=== PATIENT | female | born 1990 | race Hispanic/Latino ===

== ENCOUNTER 2022-04-24 04:53 | Emergency (ER) | payer OTHER, MEDICAID, SELFPAY ==
[2022-04-24 05:03] VITALS: BP 123/80; RESP 18; TEMP 36.8; O2SAT 99; BMI 32.5
--- NOTE | 2022-04-24 06:05 | ED.BACK ---
HPI - Back Pain/Injury General Chief Complaint: Back Pain/Injury Stated Complaint: lower back pain 18 weeks Time Seen by Provider: 04/24/22 06:04 Source: patient Related Data Previous Rx's Medication Instructions Recorded nitrofurantoin 100 mg PO BID 7 days #14 caps 04/24/22 monohydrate/macrocrystals 100 mg capsule (Macrobid) Patient History Medical History (Updated 04/24/22 @ 08:18 by Jere Becker MD) No chronic diseases present Surgical History (Updated 04/24/22 @ 08:14 by Jere Becker MD) History of Social History Smoking Status: Never smoker Smoking Status: Never smoker Substance Use Type: does not use Exam Initial Vital Signs Initial Vital Signs: Vital Signs Temperature 98.2 F 04/24/22 05:03 Respiratory Rate 18 04/24/22 05:03 Blood Pressure 123/80 04/24/22 05:03 Pulse Oximetry 99 04/24/22 05:03 Oxygen Delivery Method 04/24/22 05:03 Course Orders Ordered: Discontinued Medications Nitrofurantoin Macrocrystals (Nitrofurantoin Er 100 Mg Capsule) 100 mg PO NOW ONE Stop: 04/24/22 08:12 Last Admin: 04/24/22 08:22 Dose: 100 mg Documented By: ROSMERY Vital Signs Vital signs: Vital Signs - 8 hr 04/24/22 05:03 Temperature 98.2 F Respiratory Rate 18 Blood Pressure 123/80 Pulse Oximetry 99 Oxygen Delivery Method Room Air MDM - Back Pain/Injury Lab Data Labs: Lab Results 04/24/22 Range/Units 05:15 Urine Color Yellow Urine Appearance Sl cloudy Urine pH 6.5 (4.5-8.0) Ur Specific [place] 1.015 (1.000-1.035) Urine Protein Trace H (Negative) Urine Glucose (UA) 2+ H (Negative) g/dL Urine Ketones Trace H (NEGATIVE) Urine Occult Blood Trace-lysed (Negative) Urine Nitrate Positive H (Negative) Urine Bilirubin Negative (NEGATIVE) Urine Urobilinogen 0.2 (0.2) E.U./dL Ur Leukocyte Esterase Trace H (NEGATIVE) Urine RBC 0-1/hpf (0-5/HPF) Urine WBC 10-30/hpf H (0-5/HPF) Ur Squamous Epith Cells 0-1 /hpf (0-5/HPF) Urine Bacteria Few (2-10) H (None) Ur Culture Indicated? Specimen cultured Discharge Plan Departure Patient Disposition: Home Clinical Impression: UTI (urinary tract infection), Lumbar back pain, Second trimester Instructions: DI for Low Back Pain, DI for Urinary Tract Infection (UTI) Activity Restrictions/Additional Instructions: Tylenol every 4 hours for pain. Macrobid 2 times daily x7 days. Be sure you are drinking plenty of fluids at all times. For the back pain, I would recommend frequent walking and stretching. Recheck with your PCM in approximately 2 weeks. Return here as needed. Prescriptions: New nitrofurantoin monohyd/m-cryst [Macrobid] 100 mg capsule 100 mg PO BID 7 Days Qty: 14 0RF Rx Instructions: must administer with a meal/food Visit Report Forms: Patient Portal/API
--- NOTE | 2022-04-24 07:03 | ED.BACK ---
HPI - Back Pain/Injury General Chief Complaint: Back Pain/Injury Stated Complaint: lower back pain 18 weeks Time Seen by Provider: 04/24/22 06:04 Source: patient Mode of arrival: Ambulatory Limitations: no limitations History of Present Illness HPI Narrative: Patient is is , currently 18 weeks . She developed low back pain while at rest history morning. Pain radiates to her left lower abdomen. She denies dysuria or hematuria. She was recently seen by her OB provider, urine sample was tested but she had no callback. The pain is in lower back, not the mid back. She has 2 prior C-sections. The suprapubic discomfort is not new to her. She is no distention, no nausea, diarrhea or constipation. She is no fever chills. With low back pain, she is no lower extremity weakness or numbness. She is no obvious injury to the back. She is no history of chronic back problems. Related Data Previous Rx's Medication Instructions Recorded nitrofurantoin 100 mg PO BID 7 days #14 caps 04/24/22 monohydrate/macrocrystals 100 mg capsule (Macrobid) Review of Systems Constitutional Constitutional: Denies body ache(s), Denies chills, Denies fever(s) and Denies weakness ENT Ears, Nose, Mouth, and Throat: Denies sore throat Cardiovascular Cardiovascular: Denies chest pain and Denies dyspnea Respiratory Respiratory: Denies cough and Denies dyspnea Gastrointestinal Gastrointestinal: Reports as per HPI and Reports abdominal pain Genitourinary Genitourinary: Denies dysuria Musculoskeletal Musculoskeletal: Reports as per HPI, Reports back pain, Denies myalgias and Denies numbness Integumentary/Breasts Skin/Breast: Denies rash Neurologic Neurologic: Denies numbness and Denies weakness Patient History Medical History (Updated 04/24/22 @ 08:18 by Jere Becker MD) No chronic diseases present Surgical History (Updated 04/24/22 @ 08:14 by Jere Becker MD) History of Social History Smoking Status: Never smoker Smoking Status: Never smoker Substance Use Type: does not use Exam Initial Vital Signs Initial Vital Signs: Vital Signs Temperature 98.2 F 04/24/22 05:03 Respiratory Rate 18 04/24/22 05:03 Blood Pressure 123/80 04/24/22 05:03 Pulse Oximetry 99 04/24/22 05:03 Oxygen Delivery Method 04/24/22 05:03 Const General: cooperative, healthy appearing and comfortable [facility] Head: normocephalic and atraumatic GI Other: Obese. Mild suprapubic discomfort with palpation. There is no suggestion of tenderness with palpation of the uterus. The uterus is consistent with 18 weeks . No masses. Normal bowel sounds. No guarding or rebound. Specificly, no RLQ tenderness. Back/Spine/Pelvis Other: No CVAT. Vague tenderness at the L4-L5 level. Left SI tenderness without palpable deformity. Skin General: no rashes or lesions noted Neuro General: patient alert, patient awake and no focal motor deficits Extrem Other: Normal range of motion at both hips. No lower extremity discomfort or edema. Course Course Course Narrative: UA is consistent with UTI. Patient was given initial dose of Macrobid. Tylenol will be recommended for pain, Macrobid for the UTI. Orders Ordered: ED Orders 04/24/22 05:15 UA Complete [Urinalysis and Microscopic] Stat Urine Culture Stat Vital Signs Vital signs: Vital Signs - 8 hr 04/24/22 05:03 Temperature 98.2 F Respiratory Rate 18 Blood Pressure 123/80 Pulse Oximetry 99 Oxygen Delivery Method Room Air MDM - Back Pain/Injury Lab Data Labs: Lab Results 04/24/22 Range/Units 05:15 Urine Color Yellow Urine Appearance Sl cloudy Urine pH 6.5 (4.5-8.0) Ur Specific [place] 1.015 (1.000-1.035) Urine Protein Trace H (Negative) Urine Glucose (UA) 2+ H (Negative) g/dL Urine Ketones Trace H (NEGATIVE) Urine Occult Blood Trace-lysed (Negative) Urine Nitrate Positive H (Negative) Urine Bilirubin Negative (NEGATIVE) Urine Urobilinogen 0.2 (0.2) E.U./dL Ur Leukocyte Esterase Trace H (NEGATIVE) Urine RBC 0-1/hpf (0-5/HPF) Urine WBC 10-30/hpf H (0-5/HPF) Ur Squamous Epith Cells 0-1 /hpf (0-5/HPF) Urine Bacteria Few (2-10) H (None) Ur Culture Indicated? Specimen cultured Discharge Plan Departure Patient Disposition: Home Clinical Impression: UTI (urinary tract infection), Lumbar back pain, Second trimester Instructions: DI for Low Back Pain, DI for Urinary Tract Infection (UTI) Activity Restrictions/Additional Instructions: Tylenol every 4 hours for pain. Macrobid 2 times daily x7 days. Be sure you are drinking plenty of fluids at all times. For the back pain, I would recommend frequent walking and stretching. Recheck with your PCM in approximately 2 weeks. Return here as needed. Prescriptions: New nitrofurantoin monohyd/m-cryst [Macrobid] 100 mg capsule 100 mg PO BID 7 Days Qty: 14 0RF Rx Instructions: must administer with a meal/food
[2022-04-24 07:33] LABS: Appearance Urine UA SL CLOUDY; Bilirubin Urine UA NEGATIVE (NEGATIVE); Color Urine UA YELLOW; Glucose Urine UA 2+ g/dL (Negative); Ketones Urine UA TRACE (NEGATIVE); Leukocyte Esterase Urine UA TRACE (NEGATIVE); Nitrite Urine UA POSITIVE (Negative); Occult Blood Urine UA TRACE-LYSED (Negative); Protein Urine UA TRACE (Negative); Specific Gravity Urine UA 1.015 (1.000-1.035); Urobilinogen Urine UA 0.2 E.U./dL (0.2)
[2022-04-24 07:40] LABS: pH Urine UA 6.5 (4.5-8.0)
[2022-04-24 07:58] LABS: Bacteria Urine Few (2-10); Culture Indicated Urine Specimen Cultured; RBC Urine 0-1/HPF (0-5/HPF); Squamous Epithelial Cell Urine 0-1 /HPF (0-5/HPF); WBC Urine 10-30/HPF (0-5/HPF)
[2022-04-24] MEDS: NITROFURANTOIN ER 100 MG CAPSULE PO (08:22)
== END 2022-04-24 08:30 | disposition home or self-care (01) ==
PROVIDERS: Emergency Medicine; Emergency Provider Emergency Medicine
DX: O23.42 Unspecified infection of urinary tract in pregnancy, second trimester (principal); N39.0 Urinary tract infection, site not specified; M54.50 Low back pain, unspecified; Z3A.18 18 weeks gestation of pregnancy
CPT/HCPCS: 81001; 87086; 99283

== ENCOUNTER 2024-02-22 00:11 | Emergency (ER) | payer OTHER, MEDICAID, SELFPAY ==
[2024-02-22] VITALS (20 sets, daily range): BP systolic 96–134; BP diastolic 55–85; PULSE 60–86; RESP 10–21; TEMP 36.8; O2SAT 95–100
[2024-02-22 00:45] LABS: Bacteria Urine None Seen; Culture Indicated Urine Cult Not Indicated; RBC Urine None Seen (0-5/HPF); Squamous Epithelial Cell Urine 0-1 /HPF (0-5/HPF); Urine Volume 10mL (spun); WBC Urine None Seen (0-5/HPF)
[2024-02-22] MEDS: ONDANSETRON 4 MG/2 ML INJ IV (00:49)
[2024-02-22 00:52] LABS: Add Manual Diff / Slide Review NO; Basophils Absolute Auto 100 /uL (0-100); Basophils Percent Auto 0.8 % (0-2); Eosinophils Absolute Auto 100 /uL (0-450); Eosinophils Percent Auto 1.1 % (2-4); Hemoglobin 14.9 g/dL (12.0-16.0); Lymphocytes Absolute Auto 1800 /uL (1100-4500); Lymphocytes Percent Auto 22.8 % (25-40); Mean Corpuscular HGB Conc 34.8 % (30-36); Mean Corpuscular Hemoglobin 30.5 PG (26-34); Mean Corpuscular Volume 87.6 fL (80-100); Monocytes Absolute Auto 600 /uL (0-900); Monocytes Percent Auto 7.1 % (3-14); Neutrophils Absolute Auto 5500 /uL (1500-7000); Neutrophils Percent Auto 68.2 % (50-75); Platelet Count 288 X10^3/uL (150-400); White Blood Cell Count 8.1 X10^3/uL (4.5-11.0)
[2024-02-22 01:23] LABS: Alanine Aminotransferase 252 IU/L (<35); Albumin 4.2 g/dL (3.5-5.0); Alkaline Phosphatase 142 U/L (38-126); Aspartate Aminotransferase 446 IU/L (14-36); Bilirubin Total 2.3 mg/dL (0.2-1.3); Blood Urea Nitrogen 9 mg/dL (7-17); Calcium 8.9 mg/dL (8.4-10.2); Carbon Dioxide 26 mmol/L (22-32); Chloride 99 mmol/L (98-107); Estimated Glomerular Filt Rate > 60 mL/min (>60); Globulin 4.2 g/dL (1.7-4.1); Glucose 365 mg/dL (70-100); HEMOLYSIS < 15 (0-50); Lipase 181 U/L (23-300); Potassium 3.4 mmol/L (3.4-5.1); Sodium 135 mmol/L (137-145); Total Protein 8.4 g/dL (6.3-8.2)
[2024-02-22 01:24] LABS: Magnesium 1.9 mg/dL (1.6-2.3)
[2024-02-22 01:30] LABS: Ketones (Beta-Hydroxybutyrate) 0.66 mmol/L (<0.27)
--- NOTE | 2024-02-22 01:34 | DI.US.S_ITS ---
PROCEDURE: US ABDOMEN LIMITED INDICATIONS: RUQ US to eval for GB pathology TECHNIQUE: Real-time focused scanning was performed of the abdomen, with image documentation. COMPARISON: None. FINDINGS: Liver measures 14 cm. Probably increased echogenicity. Sonographic windows were limited. Positive sonographic Simmons sign. Cholelithiasis at the neck. IMPRESSION: Cholelithiasis and positive sonographic Simmons sign, possibly cholecystitis. Increased hepatic echogenicity, nonspecific, usually steatosis. Agree with prelim report. Dictated by: Marty Danielle M.D. on 02/22/2024 at 9:35 Approved by: Marty Danielle M.D. on 02/22/2024 at 9:36
--- NOTE | 2024-02-22 01:34 | ED.GENADULT ---
HPI - General Adult <Braulio Moreno DO - Last Filed: 02/22/24 18:02> General Chief complaint: Abdominal Pain Stated complaint: vomiting, sharp pain upper abd Time Seen by Provider: 02/22/24 00:17 Source: patient Mode of arrival: Ambulatory History of Present Illness HPI narrative: Patient is a 33-year-old female. History of C-sections but no other abdominal surgeries who is here for evaluation of epigastric abdominal pain that started fairly suddenly late last evening. Has a proximally 1 hour after eating. Is fairly sudden onset. Located epigastric region. Sharp. Had quite a bit of vomiting afterwards. No diarrhea. No urinary symptoms. She has had symptoms similar to this in the past but never this bad were specifically in this location. At the time of my evaluation she had received nausea medications she states she was feeling somewhat better. No fevers. No chest pain or shortness of breath. Patient does have a history of insulin-dependent type 2 diabetes however she was not taken any insulin for the past 2 years. Related Data Previous Rx's Medication Instructions Recorded hydrocodone 5 mg-acetaminophen 325 1 tab PO Q6H PRN pain #10 tabs 02/22/24 mg tablet levofloxacin 750 mg tablet 750 mg PO DAILY 7 days #7 tabs 02/22/24 ondansetron 4 mg disintegrating 4 mg PO Q8H PRN nausea and 02/22/24 tablet vomiting #10 tabs Allergies Allergy/AdvReac Type Severity Reaction Status Date / Time No Known Drug Allergies Allergy Verified 02/22/24 00:49 Review of Systems <DO Ligia Cooney Last Filed: 02/22/24 18:02> Review of Systems ROS Unobtainable: All systems reviewed & are unremarkable except as noted in HPI and below Patient History <DO Ligia Cooney Last Filed: 02/22/24 18:02> Medical History No chronic diseases present Surgical History (Updated 04/24/22 @ 08:14 by Jere Becker MD) History of Social History Smoking Status: Never smoker Smoking Status: Never smoker Substance Use Type: does not use Exam <DO Ligia Cooney Last Filed: 02/22/24 18:02> Initial Vital Signs Initial Vital Signs: Vital Signs Temperature 98.2 F 02/22/24 00:24 Pulse Rate 85 02/22/24 00:24 Respiratory Rate 18 02/22/24 00:24 Blood Pressure 134/85 02/22/24 00:24 Pulse Oximetry 98 02/22/24 00:24 Oxygen Delivery Method Room Air 02/22/24 00:24 Const General: cooperative, comfortable and No ill appearing HENMT Head: normal to inspection and normocephalic Resp Effort & Inspection: normal respiratory effort Auscultation: clear to auscultation bilaterally Cardio Rate: regular rate Rhythm: regular rhythm GI Inspection: normal to inspection and non-distended Palpation: soft, No firm and No guarding Other: Tetanus epigastric right upper quadrant negative Simmons sign Skin General: no rashes or lesions noted Neuro General: patient alert, patient awake and moves all extremities Extrem General: normal to inspection <Dimple Coates, - Last Filed: 02/22/24 11:58> Initial Vital Signs Initial Vital Signs: Vital Signs Temperature 98.2 F 02/22/24 00:24 Pulse Rate 85 02/22/24 00:24 Respiratory Rate 18 02/22/24 00:24 Blood Pressure 134/85 02/22/24 00:24 Pulse Oximetry 98 02/22/24 00:24 Oxygen Delivery Method Room Air 02/22/24 00:24 Course <Braulio Moreno DO - Last Filed: 02/22/24 18:02> Orders Ordered: Discontinued Medications Levofloxacin (Levofloxacin 250 Mg Tablet) 750 mg PO NOW ONE Stop: 02/22/24 09:07 Last Admin: 02/22/24 09:29 Dose: 750 mg Documented By: DEEP Ondansetron HCl (Ondansetron 4 Mg/2 Ml Inj) 4 mg IV NOW ONE Stop: 02/22/24 00:24 Last Admin: 02/22/24 00:49 Dose: 4 mg Documented By: Vital Signs Vital signs: Vital Signs - 8 hr 02/22/24 04:00 02/22/24 04:00 02/22/24 04:30 Pulse Rate 63 Respiratory Rate 12 Blood Pressure 102/60 125/59 L Pulse Oximetry 96 Oxygen Delivery Method 02/22/24 04:30 02/22/24 05:00 02/22/24 05:00 Pulse Rate 60 86 Respiratory Rate 17 Blood Pressure 131/79 Pulse Oximetry 97 97 Oxygen Delivery Method 02/22/24 05:30 02/22/24 05:30 02/22/24 06:00 Pulse Rate 64 Respiratory Rate 19 Blood Pressure 111/67 99/68 Pulse Oximetry 95 Oxygen Delivery Method 02/22/24 06:00 02/22/24 06:30 02/22/24 06:30 Pulse Rate 73 67 Respiratory Rate 21 Blood Pressure 120/74 Pulse Oximetry 97 98 Oxygen Delivery Method 02/22/24 08:05 02/22/24 08:06 02/22/24 09:14 Pulse Rate 81 73 Respiratory Rate 18 Blood Pressure 125/69 Pulse Oximetry 100 99 Oxygen Delivery Method Room Air 02/22/24 09:15 02/22/24 09:15 Pulse Rate 69 Respiratory Rate Blood Pressure 130/80 Pulse Oximetry 99 Oxygen Delivery Method <Dimple Coates, - Last Filed: 02/22/24 11:58> Orders Ordered: Discontinued Medications Levofloxacin (Levofloxacin 250 Mg Tablet) 750 mg PO NOW ONE Stop: 02/22/24 09:07 Last Admin: 02/22/24 09:29 Dose: 750 mg Documented By: DEEP Ondansetron HCl (Ondansetron 4 Mg/2 Ml Inj) 4 mg IV NOW ONE Stop: 02/22/24 00:24 Last Admin: 02/22/24 00:49 Dose: 4 mg Documented By: Vital Signs Vital signs: Vital Signs - 8 hr 02/22/24 04:00 02/22/24 04:00 02/22/24 04:30 Pulse Rate 63 Respiratory Rate 12 Blood Pressure 102/60 125/59 L Pulse Oximetry 96 Oxygen Delivery Method 02/22/24 04:30 02/22/24 05:00 02/22/24 05:00 Pulse Rate 60 86 Respiratory Rate 17 Blood Pressure 131/79 Pulse Oximetry 97 97 Oxygen Delivery Method 02/22/24 05:30 02/22/24 05:30 02/22/24 06:00 Pulse Rate 64 Respiratory Rate 19 Blood Pressure 111/67 99/68 Pulse Oximetry 95 Oxygen Delivery Method 02/22/24 06:00 02/22/24 06:30 02/22/24 06:30 Pulse Rate 73 67 Respiratory Rate 21 Blood Pressure 120/74 Pulse Oximetry 97 98 Oxygen Delivery Method 02/22/24 08:05 02/22/24 08:06 02/22/24 09:14 Pulse Rate 81 73 Respiratory Rate 18 Blood Pressure 125/69 Pulse Oximetry 100 99 Oxygen Delivery Method Room Air 02/22/24 09:15 02/22/24 09:15 Pulse Rate 69 Respiratory Rate Blood Pressure 130/80 Pulse Oximetry 99 Oxygen Delivery Method Medical Decision Making <Braulio MorenoDO - Last Filed: 02/22/24 18:02> Lab Data Lab results reviewed: Yes I reviewed the patient's lab results. 02/22/24 00:32 02/22/24 00:32 Labs: Lab Results 02/22/24 02/22/24 Range/Units 00:15 00:32 WBC 8.1 (4.5-11.0) X10^3/uL RBC 4.90 (4.0-5.2) X10^6/uL Hgb 14.9 (12.0-16.0) g/dL Hct 43.0 (36-46) % MCV 87.6 (80-100) fL MCH 30.5 (26-34) PG MCHC 34.8 (30-36) % RDW 13.0 (11.6-14.8) % Plt Count 288 (150-400) X10^3/uL Neut % (Auto) 68.2 (50-75) % Lymph % (Auto) 22.8 L (25-40) % [place] % (Auto) 7.1 (3-14) % Eos % (Auto) 1.1 L (2-4) % Baso % (Auto) 0.8 (0-2) % Neut # (Auto) 5500 (9725-3998) /uL Lymph # (Auto) 1800 (1361-6557) /uL [place] # (Auto) 600 (0-900) /uL Eos # (Auto) 100 (0-450) /uL Baso # (Auto) 100 (0-100) /uL Sodium 135 L (137-145) mmol/L Potassium 3.4 (3.4-5.1) mmol/L Chloride 99 (98-107) mmol/L Carbon Dioxide 26 (22-32) mmol/L BUN 9 (7-17) mg/dL Creatinine 0.41 L (0.52-1.04) mg/dL Estimated GFR > 60 (>60) mL/min BUN/Creatinine Ratio 22.0 (6-22) Glucose 365 H (70-100) mg/dL Calcium 8.9 (8.4-10.2) mg/dL Phosphorus 3.0 (2.5-4.5) mg/dL Magnesium 1.9 (1.6-2.3) mg/dL Total Bilirubin 2.3 H (0.2-1.3) mg/dL AST 446 H (14-36) IU/L ALT 252 H (<35) IU/L Alkaline Phosphatase 142 H (38-126) U/L Total Protein 8.4 H (6.3-8.2) g/dL Albumin 4.2 (3.5-5.0) g/dL Globulin 4.2 H (1.7-4.1) g/dL Albumin/Globulin Ratio 1.0 (1.0-2.8) Lipase 181 (23-300) U/L Urine RBC None seen (0-5/HPF) Urine WBC None seen (0-5/HPF) Ur Squamous Epith Cells 0-1 /hpf (0-5/HPF) Urine Bacteria None seen (None) Ur Culture Indicated? Cult not indicated Vol Urine Centrifuged 10ml (spun) Ketones 0.66 H (<0.27) mmol/L Point of Care Testing Test Results Negative Glucose POC 318 Urine Dip Bedside Urine Glucose 1000 mg/dl Bedside Urine Bilirubin - Negative Bedside Urine Ketone + 15 Urine Specific [place] 1.010 Bedside Urine Occult Blood - Negative Bedside Urine pH 8.5 Bedside Urine Protein - Negative Bedside Urine Urobilinogen - Negative Bedside Urine Nitrite - Negative Bedside Urine Leukocytes - Negative Esterase Point of care testing: Point of Care Testing Test Results Negative Glucose POC 318 Urine Dip Bedside Urine Glucose 1000 mg/dl Bedside Urine Bilirubin - Negative Bedside Urine Ketone + 15 Urine Specific [place] 1.010 Bedside Urine Occult Blood - Negative Bedside Urine pH 8.5 Bedside Urine Protein - Negative Bedside Urine Urobilinogen - Negative Bedside Urine Nitrite - Negative Bedside Urine Leukocytes - Negative Esterase Imaging Data US - abdomen: Radiologist's Impression: Diffuse extensive hepatic steatosis. No intrahepatic or extrahepatic biliary ductal dilation Gallbladder is distended and contained stones. There was a 1.9 cm stone located near the gallbladder neck. Without significant wall thickening or pericholecystic fluid. Pancreas was not well visualized. MDM Narrative Medical decision making narrative: Patient's symptoms are greatly improved. Negative Simmons's sign. She does have cholelithiasis without an overt acute cholecystitis. Does have elevation in her bilirubin and also LFTs. I did discuss the case with Dr. Gonzalez on-call for General surgery who recommended an MRCP. I did discuss this with the patient who is in agreement for staying. Care turned over to day provider to follow-up and disposition. <Dimple Coates, DO - Last Filed: 02/22/24 11:58> Lab Data Labs: Lab Results 02/22/24 02/22/24 Range/Units 00:15 00:32 WBC 8.1 (4.5-11.0) X10^3/uL RBC 4.90 (4.0-5.2) X10^6/uL Hgb 14.9 (12.0-16.0) g/dL Hct 43.0 (36-46) % MCV 87.6 (80-100) fL MCH 30.5 (26-34) PG MCHC 34.8 (30-36) % RDW 13.0 (11.6-14.8) % Plt Count 288 (150-400) X10^3/uL Neut % (Auto) 68.2 (50-75) % Lymph % (Auto) 22.8 L (25-40) % [place] % (Auto) 7.1 (3-14) % Eos % (Auto) 1.1 L (2-4) % Baso % (Auto) 0.8 (0-2) % Neut # (Auto) 5500 (9376-6874) /uL Lymph # (Auto) 1800 (0608-2693) /uL [place] # (Auto) 600 (0-900) /uL Eos # (Auto) 100 (0-450) /uL Baso # (Auto) 100 (0-100) /uL Sodium 135 L (137-145) mmol/L Potassium 3.4 (3.4-5.1) mmol/L Chloride 99 (98-107) mmol/L Carbon Dioxide 26 (22-32) mmol/L BUN 9 (7-17) mg/dL Creatinine 0.41 L (0.52-1.04) mg/dL Estimated GFR > 60 (>60) mL/min BUN/Creatinine Ratio 22.0 (6-22) Glucose 365 H (70-100) mg/dL Calcium 8.9 (8.4-10.2) mg/dL Phosphorus 3.0 (2.5-4.5) mg/dL Magnesium 1.9 (1.6-2.3) mg/dL Total Bilirubin 2.3 H (0.2-1.3) mg/dL AST 446 H (14-36) IU/L ALT 252 H (<35) IU/L Alkaline Phosphatase 142 H (38-126) U/L Total Protein 8.4 H (6.3-8.2) g/dL Albumin 4.2 (3.5-5.0) g/dL Globulin 4.2 H (1.7-4.1) g/dL Albumin/Globulin Ratio 1.0 (1.0-2.8) Lipase 181 (23-300) U/L Urine RBC None seen (0-5/HPF) Urine WBC None seen (0-5/HPF) Ur Squamous Epith Cells 0-1 /hpf (0-5/HPF) Urine Bacteria None seen (None) Ur Culture Indicated? Cult not indicated Vol Urine Centrifuged 10ml (spun) Ketones 0.66 H (<0.27) mmol/L Point of Care Testing Test Results Negative Glucose POC 318 Urine Dip Bedside Urine Glucose 1000 mg/dl Bedside Urine Bilirubin - Negative Bedside Urine Ketone + 15 Urine Specific [place] 1.010 Bedside Urine Occult Blood - Negative Bedside Urine pH 8.5 Bedside Urine Protein - Negative Bedside Urine Urobilinogen - Negative Bedside Urine Nitrite - Negative Bedside Urine Leukocytes - Negative Esterase Point of care testing: Point of Care Testing Test Results Negative Glucose POC 318 Urine Dip Bedside Urine Glucose 1000 mg/dl Bedside Urine Bilirubin - Negative Bedside Urine Ketone + 15 Urine Specific [place] 1.010 Bedside Urine Occult Blood - Negative Bedside Urine pH 8.5 Bedside Urine Protein - Negative Bedside Urine Urobilinogen - Negative Bedside Urine Nitrite - Negative Bedside Urine Leukocytes - Negative Esterase Imaging Data MRCP: Radiologist's Impression: PROCEDURE: MR ABDOMEN WO/W CON INDICATIONS: eval for CBD stone TECHNIQUE: Coronal HASTE, axial 2D FLASH in- and [id number]; axial breath-hold T2 FSE. Dynamic axial VIBE during the administration of contrast; post-contrast coronal VIBE or 2D FLASH with fat saturation from the hepatic dome to the iliac crests. Optional diffusion weighted imaging and ADC may be performed. COMPARISON: [facility], US, US ABDOMEN LIMITED, 02/22/2024, 2:01. FINDINGS: Image quality: Diagnostic Lower chest: No basal effusions. Lungs are not well evaluated on MRI Liver: Hepatic steatosis, moderate to severe. Significant signal loss is seen on opposed phase imaging. No focal hepatic mass Gallbladder and biliary system: Distended gallbladder with a gallstone at the neck. Sonographic Simmons sign was seen on recent ultrasound. CBD is prominent at 5-6 mm. No definite filling defect within the CBD Pancreas: No ductal dilation Spleen: Nonenlarged Adrenals: No discrete nodules Kidneys: No solid mass or hydronephrosis Vessels and lymph nodes: No abdominal aortic aneurysm. The main portal vein appears patent. No pathologic lymph nodes by size criteria. Bowel and peritoneum: No evidence of small bowel obstruction. No pathologic ascites. Body wall: Unremarkable Bones: No acute or suspicious osseous findings. IMPRESSION: Cholelithiasis and gallbladder distention. Sonographic Simmons sign was seen on recent ultrasound, raising concern for cholecystitis. Nuclear medicine HIDA scan could further evaluate if necessary. Significant hepatic steatosis. Nondilated CBD. No definite filling defect on MRCP. Consider ERCP to further evaluate if necessary. Other findings above. Dictated by: Marty Danielle M.D. on 02/22/2024 at 8:34 MDM Narrative Medical decision making narrative: Patient's symptoms are greatly improved. Negative Simmons's sign. She does have cholelithiasis without an overt acute cholecystitis. Does have elevation in her bilirubin and also LFTs. I did discuss the case with Dr. Gonzalez on-call for General surgery who recommended an MRCP. I did discuss this with the patient who is in agreement for staying. Care turned over to day provider to follow-up and disposition. Dr. Coates-patient signed out to me by Dr. Moreno. Awaiting MRCP this morning she has a large 1.9 cm stone in the gallbladder neck without significant wall thickening or pericholecystic fluid. However with elevated bilirubin liver enzymes concern for choledocholithiasis. Patient evaluated pain is improved. MRCP does not show any evidence of choledocholithiasis. 08:50 Dr. Gonzalez updated on patient's symptoms test results, if patient's pain is improved she can go home follow-up outpatient with likely motion surgery 2 days. Patient agrees with this plan. She is started on antibiotics here, she understands when to return to the ED. Discharge Plan Departure Patient Disposition: Home Clinical Impression: Cholelithiasis Instructions: Gallstones Activity Restrictions/Additional Instructions: *You have been diagnosed with cholelithiasis *What to do: At this time he will need surgery however nonemergent to day. I have spoken with Dr. Gonzalez the surgeon on-call. You can call their office tomorrow you will likely have surgery on Friday. Please stay hydrated recommend Pedialyte or electrolyte fluid. Recommend a low-fat diet, *Continue to take medications as directed Levaquin 750 mg once daily [place] 1 tablet every 6 hours if needed for severe pain Zofran 4 mg every 8 hours if needed for nausea or vomiting *Follow up with your primary care provider in 2-3 days or call [phone] *Return to ER if you should have increasing pain fever persistent vomiting [or] any new, worsening or concerning symptoms Prescriptions: New levofloxacin 750 mg tablet 750 mg PO DAILY 7 Days Qty: 7 0RF hydrocodone-acetaminophen 5-325 mg tablet 1 tab PO Q6H PRN (Reason: pain) Qty: 10 0RF ondansetron 4 mg tablet,disintegrating 4 mg PO Q8H PRN (Reason: nausea and vomiting) Qty: 10 0RF Referrals: Christa Gonzalez MD [Physician] - Stand Alone Forms: Patient Portal/API
--- NOTE | 2024-02-22 03:05 | DI.MRI.S_ITS ---
PROCEDURE: MR ABDOMEN WO/W CON INDICATIONS: eval for CBD stone TECHNIQUE: Coronal HASTE, axial 2D FLASH in- and [id number]; axial breath-hold T2 FSE. Dynamic axial VIBE during the administration of contrast; post-contrast coronal VIBE or 2D FLASH with fat saturation from the hepatic dome to the iliac crests. Optional diffusion weighted imaging and ADC may be performed. COMPARISON: [facility], , US ABDOMEN LIMITED, 02/22/2024, 2:01. FINDINGS: Image quality: Diagnostic Lower chest: No basal effusions. Lungs are not well evaluated on MRI Liver: Hepatic steatosis, moderate to severe. Significant signal loss is seen on opposed phase imaging. No focal hepatic mass Gallbladder and biliary system: Distended gallbladder with a gallstone at the neck. Sonographic Simmons sign was seen on recent ultrasound. CBD is prominent at 5-6 mm. No definite filling defect within the CBD Pancreas: No ductal dilation Spleen: Nonenlarged Adrenals: No discrete nodules Kidneys: No solid mass or hydronephrosis Vessels and lymph nodes: No abdominal aortic aneurysm. The main portal vein appears patent. No pathologic lymph nodes by size criteria. Bowel and peritoneum: No evidence of small bowel obstruction. No pathologic ascites. Body wall: Unremarkable Bones: No acute or suspicious osseous findings. IMPRESSION: Cholelithiasis and gallbladder distention. Sonographic Simmons sign was seen on recent ultrasound, raising concern for cholecystitis. Nuclear medicine HIDA scan could further evaluate if necessary. Significant hepatic steatosis. Nondilated CBD. No definite filling defect on MRCP. Consider ERCP to further evaluate if necessary. Other findings above. Dictated by: Marty Danielle M.D. on 02/22/2024 at 8:34 Approved by: Marty Danielle M.D. on 02/22/2024 at 8:38
[2024-02-22] MEDS: levoFLOXacin 250 MG TABLET 750 MG PO (09:29)
== END 2024-02-22 09:38 | disposition home or self-care (01) ==
PROVIDERS: Emergency Medicine; Emergency Provider Emergency Medicine
DX: K80.20 Calculus of gallbladder without cholecystitis without obstruction (principal)
CPT/HCPCS: 36415; 74183; 76705; 80053; 81003; 81015; 81025; 82009; 82962; 83690; 83735; 84100; 85025; 96374; 99284; A9579; J2405

== ENCOUNTER 2024-02-24 14:21 | Day surgery (SDC) | payer OTHER, MEDICAID, SELFPAY ==
[2024-02-24] VITALS (9 sets, daily range): BP systolic 120–165; BP diastolic 66–95; PULSE 75–105; RESP 11–28; TEMP 36.2–36.7; O2SAT 94–99; BMI 32.9
--- NOTE | 2024-02-24 | PATH_ITS ---
[facility] Accession Number: [id number] No. of containers..01 Tissue . 01 Material submitted: . gallbladder - GALLBLADDER . 01 Diagnosis: GALLBLADDER, CHOLECYSTECTOMY: Chronic cholecystitis. Cholelithiasis. MRV 02/26/2024 1256 Local . 01 Electronically signed: . Trinity Allison MD, Pathologist NPI- [id number] . 01 Gross description: . Received in formalin with two patient identifiers and gallbladder is a disrupted gallbladder, 6.4 x 3.0 x 1.7 cm, with a defect at the fundus 3.1 cm in greatest dimension. The cystic duct margin is inked blue and no pericystic lymph node is identified. The lumen contains dark green mucoid bile and a black, roughened calculus is found within the container, 1.9 cm in greatest dimension. The mucosa is green and velvety with a small polypoid structure, 0.2 x 0.1 x 0.1 cm in greatest dimension. No discoloration or additional lesions are identified. The jauregui average 0.3 cm thick. Rules Examiner sections to include the cystic duct margin and full thickness sections with polyp are submitted in A1. ([id number]) /MRV 02/25/2024 1529 Local . 01 Pathologist provided ICD-10: K81.1, K80.20, K80.10 . 01 CPT . 620008 Specimen Comment: A courtesy copy of this report has been sent to [phone] Performed at: [address] [facility] [address] [address], [place], [place] [id number] MD Gamaliel Hebert MD Phone: [phone]
[2024-02-24] MEDS: LACTATED RINGERS 1,000 ML 42 ML IV ×2 (15:12→18:00)
[2024-02-24] MEDS: ACETAMINOPHEN 325 MG TABLET 975 MG PO (15:19)
[2024-02-24] MEDS: FAMOTIDINE 20 MG/2 ML VIAL IV (15:19)
[2024-02-24] MEDS: SCOPOLAMINE 1 PATCH TOP (15:19)
--- NOTE | 2024-02-24 16:06 | PM.HP.1 ---
History of Present Illness History of Present Illness Date Patient Seen: 02/24/24 Time Patient Seen: 16:07 Chief complaint: Ofelia Lopez Narrative: Seen in the emergency department over the weekend with acute cholecystitis found on ultrasound. Reports that her right upper quadrant pain was sharp in nature and now is intermittent and predominantly gone. She has not had prior episodes of the severity before. She has had 4 C sections in the past. Currently no nausea vomiting, no right upper quadrant pain. [facility] Medical History (Updated 02/23/24 @ 10:25 by Jacquelyn Drew RN) IDDM (insulin dependent diabetes mellitus) Surgical History (Updated 04/24/22 @ 08:14 by Jere Becker MD) History of Social History household members: spouse Smoking Status: Never smoker alcohol intake: never Meds Home Medications and Allergies Home Medications Medication Instructions Recorded Confirmed Type hydrocodone 5 mg-acetaminophen 325 1 tab PO Q6H PRN pain #10 tabs 02/22/24 02/24/24 Rx mg tablet levofloxacin 750 mg tablet 750 mg PO DAILY 7 days #7 tabs 02/22/24 02/24/24 Rx ondansetron 4 mg disintegrating 4 mg PO Q8H PRN nausea and 02/22/24 02/24/24 Rx tablet vomiting #10 tabs Allergies Allergy/AdvReac Type Severity Reaction Status Date / Time metronidazole AdvReac Intermediate Swelling Verified 02/24/24 15:22 of Lip/Tongue/Throat Review of Systems Review of Systems ROS: Yes All systems reviewed with the patient and are negative except as otherwise documented Exam Vital Signs (past 8 hours): - 02/24/24 15:36 02/24/24 15:38 Temperature 97.1 F L 97.1 F L Pulse Rate 82 82 Respiratory Rate 16 16 Blood Pressure 120/82 120/82 Pulse Oximetry 97 99 Oxygen Delivery Method Room Air Room Air Oxygen Delivery Method Room Air Const General: cooperative, healthy appearing and comfortable Nutritional Appearance: average body habitus HENMT Head: normocephalic and atraumatic Ears: hearing grossly normal bilaterally Face and sinus: normal facial exam Eyes Sclera: sclerae normal Neck Neck: trachea midline and No JVD Chest Chest: normal inspection of the chest Resp Effort & Inspection: normal respiratory effort and able to speak in complete sentences Cardio Rate: regular rate Rhythm: regular rhythm GI Palpation: soft and No tender Skin General: elasticity normal and turgor normal Neuro General: no focal motor deficits Psych Mental Status: mental status grossly normal Affect: normal affect Judgment: judgment good Assessment & Plan Assessment & Plan narrative: Recent acute cholecystitis. Plan: Laparoscopic cholecystectomy Time-Based Coding :: [TOTAL MINUTES] spent with patient and on the chart (including review of chart, obtaining history, exam, reviewing outside data, placing orders, documenting exam and treatment plan, and counseling patient) on [DATE].
[2024-02-24] MEDS: CEFAZOLIN 2 GM/100 ML PREMIX 100 ML IV (16:19)
--- NOTE | 2024-02-24 16:40 | SUR.OPER ---
Supine on padded OR bed, head on pillow, arms secured on padded arm boards at <90 degrees abduction, legs uncrossed, safety belt at thigh, tape over blanket over lower legs.
[2024-02-24] MEDS: BUPIVACAINE 0.5% W/ EPI (PF) 30 ML VIAL INJ (16:46)
--- NOTE | 2024-02-24 17:11 | P.OP_ITS ---
Operative Date/Time/Diagnoses Date of procedure: 02/24/24 Time of procedure: 17:11 Pre-op diagnosis: Acute cholecystitis Post-op diagnosis: same Procedure & Clinicians Procedure: Laparoscopic cholecystectomy Same procedure as scheduled: Yes Indications: Acute cholecystitis with large stone in the neck of the gallbladder Surgeon: Christa Gonzalez Cook Helper Dessert: Jose Noland Click Yes if Unassisted: Yes Anesthesia Type: General and Local Operative Notes Findings: Evidence of recent acute cholecystitis. The gallbladder itself was intrahepatic, and there is a large 2 cm stone within the gallbladder. Closure Type: primary Specimen(s): other (Gallbladder) Estimated Blood Loss (mL): 15 Blood products transfused: none Procedure in detail: Preop diagnosis: Acute cholecystitis Postop diagnosis: Same Operative procedure: Cholecystectomy laparoscopic. Surgeon: Kate Gonzalez MD Findings: An intrahepatic gallbladder with a single large stone 2 cm in size. Procedure: Patient placed in a supine position. Prepped and draped in sterile fashion to expose her abdomen. Infraumbilical port site was placed using open technique a 12 mm port. Insufflation began all other ports were placed under direct vision including a 10 mm port in the midepigastrium and 2 5 mm ports in the right lateral abdomen. Gallbladder was grasped and lifted cephalad for maximum exposure. I was able to dissect free the cystic duct. It was clipped twice proximally and once distally. Cystic artery clipped once distally and once proximally and then both transected. Gallbladder was removed from the fossa bed with electrocautery and excellent hemostasis. Due to the intrahepatic nature of the gallbladder. At 1 point I entered into the anterior wall, was able to retrieve all stones. Suction and irrigation was used to clear any spi lled bile. And a small portion of the posterior wall was left in place. Gallbladder remnant and stone were placed into an Endo-Catch bag and pulled through the infraumbilical port site intact. I then removed all ports and began closure. Closure consisted of interrupted 0 Vicryl for fascial closure of the infraumbilical port site. Skin was closed with a running 4-0 Vicryl. Steri- Strips and sterile dressings were placed. Patient was awakened, extubated, taken to recovery room in stable condition. Needle, instrument, sponge counts were correct. Blood loss: 15 mL Specimen: Gallbladder Of note on induction patient had multiple loose teeth a 1 of which fell out and was retrieved. Complications: none Post-operative Condition: stable Disposition: PACU
--- NOTE | 2024-02-24 17:22 | SUR.PREOP ---
During preop interview, This RN noted patient had multiple loose teeth both lower and upper. This RN discussed w/patient the risk of her teeth falling out during the procedure; also informed her we would be very careful but as loose as her teeth were, the possibility they might become dislodged was high. Patient verbalized understanding of the risk that her teeth might fall out. This RN informed patient that should her teeth fall out we would give them to her in a container to take home; patient verbalized that she was aware her teeth might fall out because of how loose they were.
[2024-02-24] MEDS: ONDANSETRON 4 MG/2 ML INJ IV (17:28)
[2024-02-24] MEDS: HYDROMORPHONE 1 MG INJ IV (17:28)
[2024-02-24] MEDS: fentaNYL 100 MCG/2 ML INJ IV (17:29)
--- NOTE | 2024-02-24 17:31 | SUR.OPER ---
While patient was getting bagged, i observed the patients tooth falling out. Was able to retrieve loose tooth and put it in a container. Tooth is with patient in PACU.
[2024-02-24] MEDS: OXYCODONE IR 5 MG TABLET PO ×2 (17:53→18:14)
== END 2024-02-24 18:20 | disposition home or self-care (01) ==
PROVIDERS: Referring Provider Surgery; Visit Provider Surgery
PROC: 0FT44ZZ Resection of Gallbladder, Percutaneous Endoscopic Approach (ICD-10-PCS; CPT 47562; principal; 2024-02-24 15:30)
DX: K80.00 Calculus of gallbladder with acute cholecystitis without obstruction (principal)
CPT/HCPCS: 47562; 81025; J0330; J0690; J1100; J1171; J2250; J2405; J2704; J3010

== ENCOUNTER 2024-02-25 22:52 | Observation (INO) | payer OTHER, MEDICAID, SELFPAY ==
[2024-02-25 23:08] VITALS: BP 117/68; PULSE 89; RESP 18; TEMP 36.9; O2SAT 99; BMI 32.9
[2024-02-25 23:22] VITALS: PULSE 76; O2SAT 98
--- NOTE | 2024-02-25 23:22 | ED.ABDPAIN ---
HPI - Abdominal Pain General Chief Complaint: Abdominal Pain Stated Complaint: abd px, Gallbladder Sx 02/23 Time Seen by Provider: 02/25/24 23:21 Source: patient Mode of arrival: Ambulatory Limitations: no limitations History of Present Illness HPI narrative: 33-year-old female who had laparoscopic cholecystectomy yesterday on 02/24/[address] Carlos adan at [facility]. Patient states has had the usual postoperative pains, states has had occasionally some discomfort up in her right shoulder which she has a preceding surgery. This evening she went to lay flat and had significant increase of pain in the right upper quadrant and off to the right side. Patient states could not get comfortable initially no matter what position. It has since improved she still has some pain which he described as 3/10 but is much better than at home. She denies any fevers she did have some chills when she was most painful. Denies any nausea or vomiting. States she has been eating and drinking. States she has not had a bowel movement yet since her surgery but is passing flatus regularly. Denies dysuria urgency or frequency. Denies any flank pain or lower abdominal pain. Patient blood pressure is a little low on recheck she states typically she was 120s. Has had a prior history of , tubal ligation. States no other regular prescription medications. She is taking Tylenol and [employer] for pain management at home. States allergic to metronidazole. Does vape tobacco, no regular alcohol, uses marijuana no other recreational drugs. Related Data Previous Rx's Medication Instructions Recorded hydrocodone 5 mg-acetaminophen 325 1 tab PO Q6H PRN pain #10 tabs 02/22/24 mg tablet ondansetron 4 mg disintegrating 4 mg PO Q8H PRN nausea and 02/22/24 tablet vomiting #10 tabs hydrocodone 5 mg-acetaminophen 325 1 tab PO Q8H PRN pain #20 tabs 02/24/24 mg tablet Allergies Allergy/AdvReac Type Severity Reaction Status Date / Time metronidazole AdvReac Intermediate Swelling Verified 02/24/24 15:22 of Lip/Tongue/Throat Review of Systems Review of Systems ROS Unobtainable: All systems reviewed & are unremarkable except as noted in HPI and below Patient History Medical History IDDM (insulin dependent diabetes mellitus) Surgical History History of Social History household members: spouse Smoking Status: Current every day smoker alcohol intake: never Smoking Status: Current every day smoker tobacco type: vaping Substance Use Type: marijuana Exam Narrative Exam Narrative: GENERAL: Alert and oriented x three, well-appearing female in mild distress. HEENT: Head normocephalic, atraumatic, EOMI, pupils reactive, face symmetric, moist mucous membranes NECK: Supple, full range of motion CARDIOVASCULAR: Regular rate and rhythm without murmurs, rubs or gallops. RESPIRATORY: Breath sounds equal bilaterally, no wheezes rales or rhonchi. ABDOMEN: Soft, mildly tender right upper quadrant. Normoactive bowel sounds all 4 quadrants. No guarding or rebound, rigidity, no mass, patient's incisions appear clean dry and intact without any signs of erythema or skin changes. No significant ecchymosis noted in the abdomen or flank. : No CVA tenderness bilaterally. EXTREMITIES: Normal range of motion, no clubbing or edema. Neurovascularly intact NEUROLOGICAL: Cranial nerves II through XII grossly intact. Moving all extremities SKIN: Warm, dry, no petechiae, no rashes or lesions. Initial Vital Signs Initial Vital Signs: Vital Signs Temperature 98.4 F 02/25/24 23:08 Pulse Rate 89 02/25/24 23:08 Respiratory Rate 18 02/25/24 23:08 Blood Pressure 117/68 02/25/24 23:08 Pulse Oximetry 99 02/25/24 23:08 Oxygen Delivery Method Room Air 02/25/24 23:08 Course Orders Ordered: ED Orders 02/25/24 23:30 Complete Blood Count AUTO DIFF Stat Comprehensive Metabolic Panel Stat Lipase Stat 02/25/24 23:44 CT abdomen pelvis w con Stat 02/26/24 Complete Blood Count AUTO DIFF Routine Comprehensive Metabolic Panel Routine 02/26/24 00:47 Education, smoking cessation ONGOING Acetaminophen (Acetaminophen 325 Mg Tablet) 650 mg PO Q6H PRN PRN Reason: Fever/Mild Pain (1-3) Hydrocodone Bitart/Acetaminophen (Hydrocodone/Acet 5/325 Tablet) 1 tab PO Q4H PRN PRN Reason: Pain, Moderate (4-6) Hydromorphone HCl (Hydromorphone 2 Mg Tablet) 4 mg PO Q4HR PRN PRN Reason: Pain, Severe (7-10) Hydromorphone HCl (Hydromorphone 0.5 Mg Inj) 0.5 mg IV Q2H PRN PRN Reason: Pain, Severe (7-10) Potassium Chloride 20 meq/ (Sodium Chloride) 1,010 mls @ 100 mls/hr IV CONT MARIA LUZ Insulin Glargine (Insulin Glargine 100 Unit/Ml 3ml Pen) 40 unit SUBCUT BEDTIME MARIA LUZ Naloxone HCl (Naloxone 0.4 Mg/Ml Vial) 0.2 mg IV Q2MIN PRN PRN Reason: Opiate Reversal Ondansetron HCl (Ondansetron 4 Mg/2 Ml Inj) 4 mg IV NOW PRN PRN Reason: Nausea And Vomiting Ondansetron HCl (Ondansetron 4 Mg/2 Ml Inj) 4 mg IV Q8HR PRN PRN Reason: Nausea And Vomiting Discontinued Medications Sodium Chloride (Normal Saline 0.9%) 1,000 mls @ 1,000 mls/hr IV BOLUS ONE Stop: 02/26/24 00:42 Last Admin: 02/26/24 00:03 Dose: 1,000 mls/hr Ondansetron HCl (Ondansetron 4 Mg Odt) 4 mg PO NOW PRN PRN Reason: Nausea And Vomiting Vital Signs Vital signs: Vital Signs - 8 hr 02/25/24 23:08 02/25/24 23:22 02/25/24 23:30 Temperature 98.4 F Pulse Rate 89 76 Respiratory Rate 18 Blood Pressure 117/68 108/77 Pulse Oximetry 99 98 Oxygen Delivery Method Room Air 02/25/24 23:30 02/26/24 00:00 02/26/24 00:30 Temperature Pulse Rate 78 69 70 Respiratory Rate 15 Blood Pressure Pulse Oximetry 98 100 98 Oxygen Delivery Method MDM - Abdominal Pain Lab Data 02/25/24 23:30 02/25/24 23:30 Labs: Lab Results 02/25/24 02/25/24 Range/Units 23:30 23:45 WBC 10.9 Cancelled (4.5-11.0) X10^3/uL RBC 4.38 Cancelled (4.0-5.2) X10^6/uL Hgb 13.1 Cancelled (12.0-16.0) g/dL Hct 39.1 Cancelled (36-46) % MCV 89.3 Cancelled (80-100) fL MCH 29.8 Cancelled (26-34) PG MCHC 33.4 Cancelled (30-36) % RDW 13.2 Cancelled (11.6-14.8) % Plt Count 262 Cancelled (150-400) X10^3/uL Neut % (Auto) 60.9 Cancelled (50-75) % Lymph % (Auto) 30.7 Cancelled (25-40) % Pike % (Auto) 7.1 Cancelled (3-14) % Eos % (Auto) 0.5 L Cancelled (2-4) % Baso % (Auto) 0.8 Cancelled (0-2) % Neut # (Auto) 6700 Cancelled (9747-9293) /uL Lymph # (Auto) 3400 Cancelled (4463-8362) /uL Pike # (Auto) 800 Cancelled (0-900) /uL Eos # (Auto) 100 Cancelled (0-450) /uL Baso # (Auto) 100 Cancelled (0-100) /uL Sodium 133 L Cancelled (137-145) mmol/L Potassium 4.1 Cancelled (3.4-5.1) mmol/L Chloride 102 Cancelled (98-107) mmol/L Carbon Dioxide 22 Cancelled (22-32) mmol/L BUN 17 Cancelled (7-17) mg/dL Creatinine 0.47 L Cancelled (0.52-1.04) mg/dL Estimated GFR > 60 Cancelled (>60) mL/min BUN/Creatinine Ratio 36.2 H Cancelled (6-22) Glucose 429 H Cancelled (70-100) mg/dL Calcium 9.1 Cancelled (8.4-10.2) mg/dL Total Bilirubin 0.9 Cancelled (0.2-1.3) mg/dL AST 90 H Cancelled (14-36) IU/L ALT 252 H Cancelled (<35) IU/L Alkaline Phosphatase 142 H Cancelled (38-126) U/L Total Protein 7.6 Cancelled (6.3-8.2) g/dL Albumin 4.1 Cancelled (3.5-5.0) g/dL Globulin 3.5 Cancelled (1.7-4.1) g/dL Albumin/Globulin Ratio 1.2 Cancelled (1.0-2.8) Lipase 130 Cancelled (23-300) U/L Point of care testing: Point of Care Testing Glucose POC [address] scan - abdomen/pelvis: Radiologist's Impression: Close Abdomen/Pelvis CT (Signed) Jamie Chavez - 02/25/24 Abdomen MRI (Signed) Marty Danielle - 02/22/24 Abdomen Ultrasound (Signed) Marty Danielle - 02/22/24 Launch?Image [address] [address] [address] Scan Report Signed Patient: Nora Nicolas MR#: [id number] : 1990 Acct:[id number] Age/Sex: 33 / F Date of Service: 02/25/24 Loc: ED Accession Number: [id number] Procedure: CT abdomen pelvis w con Ordering Provider: Merlene Schroeder D.O. PROCEDURE: CT ABDOMEN PELVIS W CON INDICATIONS: s/p lap liliana yesterday, increased RUQ pain TECHNIQUE: After the administration of intravenous contrast, axial sections acquired from the lung bases to the pubic symphysis. Coronal and sagittal reformats were performed. For radiation dose reduction, the following was used: automated exposure control, adjustment of mA and/or kV according to patient size. COMPARISON: [facility], , ABDOMEN WO/W CON, 02/22/2024, 7:30. FINDINGS: Image quality: Diagnostic. Lower Chest: No significant findings. ABDOMEN: Liver: Rounded area of low attenuation within the anterior aspect of the liver measuring approximately 3.2 cm near the gallbladder fossa Gallbladder: Surgically absent. Biliary ducts: No biliary dilation. Pancreas: No ductal dilation. Spleen: Size is within normal limits. Adrenal Glands: No adrenal nodules. Kidneys and Ureters: No hydronephrosis. No solid mass. No complex renal cystic lesion which requires follow up. Stomach and Bowel: Normal colonic caliber, without significant wall thickening. Moderate stool burden. Normal appendix. Peritoneum: No abnormal intraperitoneal fluid. No free air. Ventral Wall: No significant ventral hernia. Stranding and subcutaneous emphysema at the umbilicus and right abdomen, consistent with postsurgical changes. Abdominal Nodes: No retroperitoneal or mesenteric adenopathy by size criteria. Vessels: Aorta and inferior vena cava are normal in size. PELVIS: Pelvic Organs: Unremarkable. Bladder: No bladder wall thickening, accounting for underdistention. Pelvic Nodes: No enlarged lymph nodes. Miscellaneous: No inguinal hernias are seen. Bones: No aggressive osseous abnormality. IMPRESSION: 1. Status post cholecystectomy. Small free fluid in the pelvis and trace extraluminal gas, consistent with postsurgical changes. 2. In the anterior aspect of the liver, near the gallbladder fossa, there is a 3.2 cm area of rounded low-attenuation of uncertain etiology. Differential includes etiologies such as postsurgical changes, developing infection, infarct or bile leak. Dictated by: Jamie Chavez M.D. on 02/26/2024 at 0:11 Approved by: Jamie Chavez M.D. on 02/26/2024 at 0:17 MDM Narrative Medical decision making narrative: 33-year-old female 1 day postop from laparoscopic cholecystectomy who had significant increase of pain when lying flat states it has since improved but states that that was very typical from her surgery. She was cleaned denied intact. Patient's initial vitals are normal she was little bit hypotensive on rechecked. Patient was given fluids. She defers pain Labs white count of 10.9 hemoglobin of 13 platelets of 262. Sodium is 133 potassium is 4.1 chloride 102 CO2 is 21 with a BUN of 17 creatinine 0.47 glucose is 429. Total bilirubin 0.9 AST is 90 ALT is 252 alk-phos is 142, lipase is 130. There are improved from February 21. Patient is hyperglycemic at 429. was in the 300 range on 02/22/2024. CT abdomen pelvis, patient is status post cholecystectomy small free fluid in the pelvis trace extra luminal gas consistent with postsurgical changes. Anterior aspect of the liver near gallbladder fossa there is a 3.2 cm area of rounded low attenuation of uncertain etiology differential includes postsurgical changes developing infection infarction or bile leak. Patient did have an MRI of her abdomen on 02/22/2024 and did not have any changes at that time. Urine, patient has had tubal ligation. Patient does not appear to be in DKA, CO2 is appropriate, so I held off on VBG she was hyperglycemic. States she has a diabetic, she has been out of her medications secondary to insurance reasons. Spoke with Dr. Navas, general surgery reviewed findings possible bile leak, notes could be possibly some hematoma would recommend observation but because of patient's hyperglycemia and history of diabetes asked for labs under Medicine with consult by General surgery. States can hold off on antibiotics at this time. Discussed with patient she was agreeable. Spoke with tele hospitalist Dr. Irvin, accepts for observation. Asked for 40 units of Lantus, recheck glucose and fell in the 300s or greater 10 units of short-acting insulin. Reviewed recommendations from Dr. Navas. Discussed with patient, she was agreeable to stay for observation. States she was on high doses of short and long-acting insulin in the past. Would add she states 40 units of Lantus seems appropriate. Discharge Plan Departure Patient Disposition: Admitted as Observation Clinical Impression: Abdominal pain, Hyperglycemia, Status post cholecystectomy Admit Date/Time: 02/26/24 00:47 Admit Provider: Alton Irvin
[2024-02-25 23:30] VITALS: BP 108/77; PULSE 78; O2SAT 98
--- NOTE | 2024-02-25 23:44 | DI.CT.S_ITS ---
PROCEDURE: CT ABDOMEN PELVIS W CON INDICATIONS: s/p lap liliana yesterday, increased RUQ pain TECHNIQUE: After the administration of intravenous contrast, axial sections acquired from the lung bases to the pubic symphysis. Coronal and sagittal reformats were performed. For radiation dose reduction, the following was used: automated exposure control, adjustment of mA and/or kV according to patient size. COMPARISON: [facility], MR, MR ABDOMEN WO/W CON, 02/22/2024, 7:30. FINDINGS: Image quality: Diagnostic. Lower Chest: No significant findings. ABDOMEN: Liver: Rounded area of low attenuation within the anterior aspect of the liver measuring approximately 3.2 cm near the gallbladder fossa Gallbladder: Surgically absent. Biliary ducts: No biliary dilation. Pancreas: No ductal dilation. Spleen: Size is within normal limits. Adrenal Glands: No adrenal nodules. Kidneys and Ureters: No hydronephrosis. No solid mass. No complex renal cystic lesion which requires follow up. Stomach and Bowel: Normal colonic caliber, without significant wall thickening. Moderate stool burden. Normal appendix. Peritoneum: No abnormal intraperitoneal fluid. No free air. Ventral Wall: No significant ventral hernia. Stranding and subcutaneous emphysema at the umbilicus and right abdomen, consistent with postsurgical changes. Abdominal Nodes: No retroperitoneal or mesenteric adenopathy by size criteria. Vessels: Aorta and inferior vena cava are normal in size. PELVIS: Pelvic Organs: Unremarkable. Bladder: No bladder wall thickening, accounting for underdistention. Pelvic Nodes: No enlarged lymph nodes. Miscellaneous: No inguinal hernias are seen. Bones: No aggressive osseous abnormality. IMPRESSION: 1. Status post cholecystectomy. Small free fluid in the pelvis and trace extraluminal gas, consistent with postsurgical changes. 2. In the anterior aspect of the liver, near the gallbladder fossa, there is a 3.2 cm area of rounded low-attenuation of uncertain etiology. Differential includes etiologies such as postsurgical changes, developing infection, infarct or bile leak. Dictated by: Jamie Chavez M.D. on 02/26/2024 at 0:11 Approved by: Jamie Chavez M.D. on 02/26/2024 at 0:17
[2024-02-25 23:51] LABS: Add Manual Diff / Slide Review NO; Basophils Absolute Auto 100 /uL (0-100); Basophils Percent Auto 0.8 % (0-2); Eosinophils Absolute Auto 100 /uL (0-450); Eosinophils Percent Auto 0.5 % (2-4); Hematocrit 39.1 % (36-46); Hemoglobin 13.1 g/dL (12.0-16.0); Lymphocytes Absolute Auto 3400 /uL (1100-4500); Lymphocytes Percent Auto 30.7 % (25-40); Mean Corpuscular HGB Conc 33.4 % (30-36); Mean Corpuscular Hemoglobin 29.8 PG (26-34); Mean Corpuscular Volume 89.3 fL (80-100); Monocytes Absolute Auto 800 /uL (0-900); Monocytes Percent Auto 7.1 % (3-14); Neutrophils Absolute Auto 6700 /uL (1500-7000); Neutrophils Percent Auto 60.9 % (50-75); Platelet Count 262 X10^3/uL (150-400); Red Blood Cell Count 4.38 X10^6/uL (4.0-5.2); Red Cell Distribution Width 13.2 % (11.6-14.8); White Blood Cell Count 10.9 X10^3/uL (4.5-11.0)
[2024-02-26] VITALS: PULSE 69; O2SAT 100
[2024-02-26 00:01] LABS: Alanine Aminotransferase 252 IU/L (<35); Albumin 4.1 g/dL (3.5-5.0); Albumin Globulin Ratio 1.2 (1.0-2.8); Alkaline Phosphatase 142 U/L (38-126); Aspartate Aminotransferase 90 IU/L (14-36); BUN Creatinine Ratio 36.2 (6-22); Bilirubin Total 0.9 mg/dL (0.2-1.3); Blood Urea Nitrogen 17 mg/dL (7-17); Calcium 9.1 mg/dL (8.4-10.2); Carbon Dioxide 22 mmol/L (22-32); Chloride 102 mmol/L (98-107); Estimated Glomerular Filt Rate > 60 mL/min (>60); Globulin 3.5 g/dL (1.7-4.1); Glucose 429 mg/dL (70-100); HEMOLYSIS < 15 (0-50); Lipase 130 U/L (23-300); Potassium 4.1 mmol/L (3.4-5.1); Sodium 133 mmol/L (137-145); Total Protein 7.6 g/dL (6.3-8.2)
[2024-02-26] MEDS: SODIUM CHLORIDE 0.9% 1,000 ML 1000 ML IV (00:03)
[2024-02-26 00:30] VITALS: PULSE 70; RESP 15; O2SAT 98
[2024-02-26] MEDS: INSULIN GLARGINE 100 UNIT/ML 3ML PEN 40 UNIT SUBCUT (01:05)
[2024-02-26] MEDS: INSULIN REGULAR 100 UNIT/ML 3 ML VIAL 10 UNIT SUBCUT (01:16)
[2024-02-26 01:23] LABS: Bacteria Urine None Seen; Culture Indicated Urine Cult Not Indicated; RBC Urine None Seen (0-5/HPF); Squamous Epithelial Cell Urine 0-1 /HPF (0-5/HPF); Urine Volume 10mL (spun); WBC Urine None Seen (0-5/HPF)
[2024-02-26 01:26] VITALS: BP 122/73; PULSE 70; RESP 14; TEMP 35.6; O2SAT 100
[2024-02-26] MEDS: HYDROCODONE/ACET 5/325 TABLET 1 TAB PO ×2 (01:45→07:59)
[2024-02-26 01:47] VITALS: BMI 32.9
--- NOTE | 2024-02-26 04:36 | P.HP_ITS ---
History of Present Illness History of Present Illness Chief complaint: abd px, Gallbladder Sx 02/23 Narrative: 33-year-old female with past medical history of insulin dependent diabetes, recent laparoscopic cholecystectomy yesterday with Dr Gonzalez and was discharged home presents again with post-op abdominal pain. Per the patient's report, the patient initially went home yesterday from her operation feeling relatively stable. However last night the patient started to have increasing abdominal pain when she was lying flat. The pain was significantly increased mainly in her right upper quadrant. The pain did not improve much with oral pain medication that was given. The patient however denies any fever, chills, nausea, vomiting, chest pain or shortness of breath. The patient also has not had a bowel movement but is able to pass gas post-surgery.? In the emergency room, the patient was hemodynamically stable without any signs of infection. Labs only shows elevated glucose 420s and mild LFTs elevation but normal bilirubin. General surgery was consulted after a CT scan without contrast that shows post-op changes and also a 3.2 cm area of rounded low attenuation of uncertain ideology that could possibly be post-surgical changes versus developing infection versus artifact versus bile leak. General surgery did not feel there's a need for antibiotic at this time and recommended admission and general surgery will see the patient in the morning. Medicine service was asked to admit the patient due to severe hyperglycemia. Again there's no sign of DKA. Patient was given 40 units of lantus and 10 units of regular insulin . COUNT INCLUDES THE [facility] Medical History IDDM (insulin dependent diabetes mellitus) Surgical History History of Social History household members: spouse Smoking Status: Current every day smoker alcohol intake: never Meds Home Medications and Allergies Home Medications Medication Instructions Recorded Confirmed Type No Known Home Medications 02/26/24 02/26/24 History Allergies Allergy/AdvReac Type Severity Reaction Status Date / Time metronidazole AdvReac Intermediate Swelling Verified 02/24/24 15:22 of Lip/Tongue/Throat Review of Systems Review of Systems ROS: Yes All systems reviewed with the patient and are negative except as otherwise documented Exam Vital Signs (past 8 hours): - 10/09/24 23:08 02/25/24 23:22 02/25/24 23:30 Temperature 98.4 F Pulse Rate 89 76 Respiratory Rate 18 Blood Pressure 117/68 108/77 Pulse Oximetry 99 98 Oxygen Delivery Method Room Air Oxygen Flow Rate 02/25/24 23:30 02/26/24 00:00 02/26/24 00:30 Temperature Pulse Rate 78 69 70 Respiratory Rate 15 Blood Pressure Pulse Oximetry 98 100 98 Oxygen Delivery Method Oxygen Flow Rate 02/26/24 01:26 02/26/24 01:47 Temperature 96.0 F L Pulse Rate 70 Respiratory Rate 14 Blood Pressure 122/73 Pulse Oximetry 100 Oxygen Delivery Method Room Air Oxygen Flow Rate 0 Oxygen Delivery Method Room Air Oxygen Flow Rate 0 Narrative Exam Narrative: GENERAL: The patient is not in any acute distressed. Awake and alert. HEENT: Nonicteric sclerae, PERRLA, EOMI. Oropharynx clear. Moist mucous membranes. Conjunctivae appear well perfused. HEART: Regular rate and rhythm without murmurs. No lower extremities edema. LUNGS: Clear to auscultation bilaterally. No wheezing, crackles or rhonchi ABDOMEN: Soft, positive bowel sounds, upper abdominal tenderness without rebound surgical wound intact SKIN: No rash, no excessive bruising, petechiae, or purpura. NEUROLOGIC: AxO x 3. Cranial nerves II-XII intact without motor/sensory deficit. Objective Labs 02/25/24 23:30 02/25/24 23:30 Labs: Laboratory Results - last 24 hr 02/25/24 02/25/24 02/26/24 23:30 23:45 01:06 WBC 10.9 Cancelled RBC 4.38 Cancelled Hgb 13.1 Cancelled Hct 39.1 Cancelled MCV 89.3 Cancelled MCH 29.8 Cancelled MCHC 33.4 Cancelled RDW 13.2 Cancelled Plt Count 262 Cancelled Neut % (Auto) 60.9 Cancelled Lymph % (Auto) 30.7 Cancelled [place] % (Auto) 7.1 Cancelled Eos % (Auto) 0.5 L Cancelled Baso % (Auto) 0.8 Cancelled Neut # (Auto) 6700 Cancelled Lymph # (Auto) 3400 Cancelled [place] # (Auto) 800 Cancelled Eos # (Auto) 100 Cancelled Baso # (Auto) 100 Cancelled Sodium 133 L Cancelled Potassium 4.1 Cancelled Chloride 102 Cancelled Carbon Dioxide 22 Cancelled BUN 17 Cancelled Creatinine 0.47 L Cancelled Estimated GFR > 60 Cancelled BUN/Creatinine Ratio 36.2 H Cancelled Glucose 429 H Cancelled Calcium 9.1 Cancelled Total Bilirubin 0.9 Cancelled AST 90 H Cancelled ALT 252 H Cancelled Alkaline Phosphatase 142 H Cancelled Total Protein 7.6 Cancelled Albumin 4.1 Cancelled Globulin 3.5 Cancelled Albumin/Globulin Ratio 1.2 Cancelled Lipase 130 Cancelled Urine RBC None seen Urine WBC None seen Ur Squamous Epith Cells 0-1 /hpf Urine Bacteria None seen Ur Culture Indicated? Cult not indicated Vol Urine Centrifuged 10ml (spun) Assessment & Plan Assessment & Plan narrative: Post abdominal pain with recent cholecystectomy two days ago. Of note CT abdomen shows a 3.2 cm area of rounded low attenuation of uncertain ideology. General surgery was consulted when will see the patient in the morning. No antibiotic is indicated at this time for general surgery. Will have patient NPO, IV fluid and pain control with IV medication . Hyperglycemia with history of insulin dependent diabetes. Per the patient report the patient is noncompliant with her insulin.? The patients glucose now is 420. No sign in DKA or hyper osmolar. Will continue lantus and with sliding scale with IVF.? Monitor glucose closely Dehydration. IV fluid? Mild transaminitis with normal bilirubin. Monitor for now . DVT prophylaxis SCDs . Code status full code . Disposition likely home in 1 to 2 days. Time-Based Coding :: [TOTAL MINUTES] spent with patient and on the chart (including review of chart, obtaining history, exam, reviewing outside data, placing orders, documenting exam and treatment plan, and counseling patient) on [DATE].
[2024-02-26 05:00] VITALS: BP 106/70; PULSE 64; RESP 14; TEMP 36.2; O2SAT 96
[2024-02-26] MEDS: SODIUM CHLORIDE 0.9% 1,000 ML 100 ML IV (06:38)
[2024-02-26 06:39] LABS: Add Manual Diff / Slide Review NO; Basophils Absolute Auto 100 /uL (0-100); Basophils Percent Auto 0.7 % (0-2); Eosinophils Absolute Auto 100 /uL (0-450); Eosinophils Percent Auto 0.7 % (2-4); Hematocrit 36.3 % (36-46); Hemoglobin 12.3 g/dL (12.0-16.0); Lymphocytes Absolute Auto 3200 /uL (1100-4500); Lymphocytes Percent Auto 39.3 % (25-40); Mean Corpuscular HGB Conc 33.8 % (30-36); Mean Corpuscular Hemoglobin 30.4 PG (26-34); Mean Corpuscular Volume 90.1 fL (80-100); Monocytes Absolute Auto 700 /uL (0-900); Monocytes Percent Auto 8.2 % (3-14); Neutrophils Absolute Auto 4200 /uL (1500-7000); Neutrophils Percent Auto 51.1 % (50-75); Platelet Count 230 X10^3/uL (150-400); Red Blood Cell Count 4.03 X10^6/uL (4.0-5.2); Red Cell Distribution Width 13.2 % (11.6-14.8); White Blood Cell Count 8.2 X10^3/uL (4.5-11.0)
[2024-02-26 07:01] LABS: Alanine Aminotransferase 211 IU/L (<35); Albumin 3.5 g/dL (3.5-5.0); Albumin Globulin Ratio 1.1 (1.0-2.8); Alkaline Phosphatase 113 U/L (38-126); Aspartate Aminotransferase 69 IU/L (14-36); BUN Creatinine Ratio 31.1 (6-22); Bilirubin Total 0.6 mg/dL (0.2-1.3); Blood Urea Nitrogen 14 mg/dL (7-17); Calcium 8.1 mg/dL (8.4-10.2); Carbon Dioxide 25 mmol/L (22-32); Chloride 107 mmol/L (98-107); Estimated Glomerular Filt Rate > 60 mL/min (>60); Globulin 3.1 g/dL (1.7-4.1); Glucose 230 mg/dL (70-100); HEMOLYSIS < 15 (0-50); Potassium 3.6 mmol/L (3.4-5.1); Sodium 137 mmol/L (137-145); Total Protein 6.6 g/dL (6.3-8.2)
--- NOTE | 2024-02-26 07:47 | P.HP_ITS ---
History of Present Illness History of Present Illness Date Patient Seen: 02/26/24 Chief complaint: abd px, Gallbladder Sx 02/23 Narrative: From night doctor: 33-year-old female with past medical history of insulin dependent diabetes, recent laparoscopic cholecystectomy yesterday with Dr Gonzalez and was discharged home presents again with post-op abdominal pain. Per the patient's report, the patient initially went home yesterday from her operation feeling relatively stable. However last night the patient started to have increasing abdominal pain when she was lying flat. The pain was significantly increased mainly in her right upper quadrant. The pain did not improve much with oral pain medication that was given. The patient however denies any fever, chills, nausea, vomiting, chest pain or shortness of breath. The patient also has not had a bowel movement but is able to pass gas post-surgery.? In the emergency room, the patient was hemodynamically stable without any signs of infection. Labs only shows elevated glucose 420s and mild LFTs elevation but normal bilirubin. General surgery was consulted after a CT scan without contrast that shows post-op changes and also a 3.2 cm area of rounded low attenuation of uncertain ideology that could possibly be post-surgical changes versus developing infection versus artifact versus bile leak. General surgery did not feel there's a need for antibiotic at this time and recommended admission and general surgery will see the patient in the morning. Medicine service was asked to admit the patient due to severe hyperglycemia. Again there's no sign of DKA. Patient was given 40 units of lantus and 10 units of regular insulin . S: She was some right quadrant pain around 1 of the port incision sites and some serous drainage from her umbilicus. No nausea, or vomiting. [facility] Medical History IDDM (insulin dependent diabetes mellitus) Surgical History History of Social History household members: spouse Smoking Status: Current every day smoker alcohol intake: never Meds Home Medications and Allergies Home Medications Medication Instructions Recorded Confirmed Type No Known Home Medications 02/26/24 02/26/24 History Allergies Allergy/AdvReac Type Severity Reaction Status Date / Time metronidazole AdvReac Intermediate Swelling Verified 02/24/24 15:22 of Lip/Tongue/Throat Review of Systems Review of Systems Narrative: All else reviewed and otherwise unremarkable except as noted in the history and physical. Exam Vital Signs (past 8 hours): - 02/26/24 00:00 02/26/24 00:30 02/26/24 01:26 Temperature 96.0 F L Pulse Rate 69 70 70 Respiratory Rate 15 14 Blood Pressure 122/73 Pulse Oximetry 100 98 100 Oxygen Delivery Method Oxygen Flow Rate 0 02/26/24 01:47 02/26/24 05:00 Temperature 97.2 F L Pulse Rate 64 Respiratory Rate 14 Blood Pressure 106/70 Pulse Oximetry 96 Oxygen Delivery Method Room Air Oxygen Flow Rate 0 Oxygen Delivery Method Room Air Oxygen Flow Rate 0 Narrative Exam Narrative: NAD, alert and oriented, fluent speech, calm. Normocephalic skull, EOMI, anicteric sclera, symmetric pupils. Oropharynx unremarkable, no droop. Neck supple, midline trachea, no adenopathy. Lungs clear, normal rate and effort. Heart regular, no murmur gallop or rub. Abdomen is soft, non distended and non tender. Abdomen wounds are unremarkable. Extremities are free of edema. Skin is free of rash or lesions. Joints are not swollen or deformed. Judgment appears to be normal. Objective Imaging CT scan - abdomen: Radiologist's impression: 1. Status post cholecystectomy. Small free fluid in the pelvis and trace extraluminal gas, consistent with postsurgical changes. 2. In the anterior aspect of the liver, near the gallbladder fossa, there is a 3.2 cm area of rounded low-attenuation of uncertain etiology. Differential includes etiologies such as postsurgical changes, developing infection, infarct or bile leak. Labs 02/26/24 06:00 02/26/24 06:00 Labs: Laboratory Results - last 24 hr 02/25/24 02/25/24 02/26/24 23:30 23:45 01:06 WBC 10.9 Cancelled RBC 4.38 Cancelled Hgb 13.1 Cancelled Hct 39.1 Cancelled MCV 89.3 Cancelled MCH 29.8 Cancelled MCHC 33.4 Cancelled RDW 13.2 Cancelled Plt Count 262 Cancelled Neut % (Auto) 60.9 Cancelled Lymph % (Auto) 30.7 Cancelled [place] % (Auto) 7.1 Cancelled Eos % (Auto) 0.5 L Cancelled Baso % (Auto) 0.8 Cancelled Neut # (Auto) 6700 Cancelled Lymph # (Auto) 3400 Cancelled [place] # (Auto) 800 Cancelled Eos # (Auto) 100 Cancelled Baso # (Auto) 100 Cancelled Sodium 133 L Cancelled Potassium 4.1 Cancelled Chloride 102 Cancelled Carbon Dioxide 22 Cancelled BUN 17 Cancelled Creatinine 0.47 L Cancelled Estimated GFR > 60 Cancelled BUN/Creatinine Ratio 36.2 H Cancelled Glucose 429 H Cancelled Calcium 9.1 Cancelled Total Bilirubin 0.9 Cancelled AST 90 H Cancelled ALT 252 H Cancelled Alkaline Phosphatase 142 H Cancelled Total Protein 7.6 Cancelled Albumin 4.1 Cancelled Globulin 3.5 Cancelled Albumin/Globulin Ratio 1.2 Cancelled Lipase 130 Cancelled Urine RBC None seen Urine WBC None seen Ur Squamous Epith Cells 0-1 /hpf Urine Bacteria None seen Ur Culture Indicated? Cult not indicated Vol Urine Centrifuged 10ml (spun) 02/26/24 06:00 WBC 8.2 RBC 4.03 Hgb 12.3 Hct 36.3 MCV 90.1 MCH 30.4 MCHC 33.8 RDW 13.2 Plt Count 230 Neut % (Auto) 51.1 Lymph % (Auto) 39.3 [place] % (Auto) 8.2 Eos % (Auto) 0.7 L Baso % (Auto) 0.7 Neut # (Auto) 4200 Lymph # (Auto) 3200 [place] # (Auto) 700 Eos # (Auto) 100 Baso # (Auto) 100 Sodium 137 Potassium 3.6 Chloride 107 Carbon Dioxide 25 BUN 14 Creatinine 0.45 L Estimated GFR > 60 BUN/Creatinine Ratio 31.1 H Glucose 230 H D Calcium 8.1 L Total Bilirubin 0.6 AST 69 H ALT 211 H Alkaline Phosphatase 113 Total Protein 6.6 Albumin 3.5 Globulin 3.1 Albumin/Globulin Ratio 1.1 Lipase Urine RBC Urine WBC Ur Squamous Epith Cells Urine Bacteria Ur Culture Indicated? Vol Urine Centrifuged Assessment & Plan Assessment & Plan narrative: 1. Post abdominal pain with recent cholecystectomy two days ago. Of note CT abdomen shows a 3.2 cm area of rounded low attenuation of uncertain ideology. General surgery was consulted when will see the patient in the morning. No antibiotic is indicated at this time for general surgery. Will have patient NPO, IV fluid and pain control with IV medication . 2. Hyperglycemia with history of insulin dependent diabetes. Per the patient report the patient is noncompliant with her insulin.? The patients glucose now is 420. No sign in DKA or hyper osmolar. Will continue lantus and with sliding scale with IVF.? Monitor glucose closely. 3. Dehydration. IV fluid? 4. Mild transaminitis with normal bilirubin. Monitor for now . PLAN: -pain medications -IV fluid -discuss with General surgery. Observation status, anticipate 1 midnight stay. Full resuscitation. Time-Based Coding :: 30 min spent with patient and on the chart (including review of chart, obtaining history, exam, reviewing outside data, placing orders, documenting exam and treatment plan, and counseling patient) on 02/25. Quality MIPS - Admit I confirm the patient?s Advance Care Plan is present, Code status is documented, Surrogate decision maker is in patient?s record [If Yes, STOP here]: Yes MIPS - Meds 'Current medications' to include all prescriptions, [id number] products, herbals, cannabis/cannabidiol products, and vitamin/mineral/dietary (nutritional) supplements. I have utilized all available resources to obtain, update, or review the patient?s current medications. [If Yes, STOP here]: Yes
[2024-02-26] MEDS: ONDANSETRON 4 MG/2 ML INJ IV (07:59)
[2024-02-26 08:00] VITALS: BP 106/65; PULSE 66; RESP 18; TEMP 36.4; O2SAT 100
[2024-02-26] MEDS: INSULIN LISPRO 100 UNIT/ML 3ML VIAL SUBCUT (09:17)
--- NOTE | 2024-02-26 09:31 | P.DS_ITS ---
History of Present Illness History of Present Illness Chief complaint: abd px, Gallbladder Sx 02/23 Narrative: From night doctor: 33-year-old female with past medical history of insulin dependent diabetes, recent laparoscopic cholecystectomy yesterday with Dr Gonzalez and was discharged home presents again with post-op abdominal pain. Per the patient's report, the patient initially went home yesterday from her operation feeling relatively stable. However last night the patient started to have increasing abdominal pain when she was lying flat. The pain was significantly increased mainly in her right upper quadrant. The pain did not improve much with oral pain medication that was given. The patient however denies any fever, chills, nausea, vomiting, chest pain or shortness of breath. The patient also has not had a bowel movement but is able to pass gas post-surgery.? In the emergency room, the patient was hemodynamically stable without any signs of infection. Labs only shows elevated glucose 420s and mild LFTs elevation but normal bilirubin. General surgery was consulted after a CT scan without contrast that shows post-op changes and also a 3.2 cm area of rounded low attenuation of uncertain ideology that could possibly be post-surgical changes versus developing infection versus artifact versus bile leak. General surgery did not feel there's a need for antibiotic at this time and recommended admission and general surgery will see the patient in the morning. Medicine service was asked to admit the patient due to severe hyperglycemia. Again there's no sign of DKA. Patient was given 40 units of lantus and 10 units of regular insulin . S: She had some right upper quadrant pain and serous drainage from umbilicus. Discharge Providers Provider Date of admission: 02/26/24 00:47 Discharge Date: 02/26/24 Primary care physician: Doctor Derrick MD Consults: Surgery Discharge provider: Chris Espinoza MD Summary Hospital Course Discharge Diagnosis: 1. Post abdominal pain with recent cholecystectomy two days ago. Of note CT abdomen shows a 3.2 cm area of rounded low attenuation of uncertain ideology. General surgery was consulted when will see the patient in the morning. No antibiotic is indicated at this time for general surgery. Will have patient NPO, IV fluid and pain control with IV medication . 2. Hyperglycemia with history of insulin dependent diabetes. Per the patient report the patient is noncompliant with her insulin.? The patients glucose now is 420. No sign in DKA or hyper osmolar. Will continue lantus and with sliding scale with IVF.? Monitor glucose closely. 3. Dehydration. IV fluid? 4. Mild transaminitis with normal bilirubin. Monitor for now . Hospital Course: She was admitted and hydrated. She was evaluated by general surgery and felt to be stable for discharge with expected postoperative pain. She was felt to be stable for discharge home. Status at Discharge Cognitive/behavioral status at discharge: oriented Functional status at discharge: independent ambulation Overall status at discharge: patient is back to baseline Time Spent with Patient Time spent: Greater than 30 minutes Exam Vital Signs (past 8 hours): - 02/26/24 01:47 02/26/24 05:00 02/26/24 08:00 Temperature 97.2 F L 97.6 F Pulse Rate 64 66 Respiratory Rate 14 18 Blood Pressure 106/70 106/65 Pulse Oximetry 96 100 Oxygen Delivery Method Room Air Oxygen Flow Rate 0 0 Oxygen Delivery Method Room Air Oxygen Flow Rate 0 Narrative Exam Narrative: NAD, alert and oriented. Fluent speech. Lungs are clear, normal rate and effort. Heart is regular, no murmur gallop or rub. Abdomen is soft, non distended. Wounds are unremarkable. Some serous drainage from umbilicus. Extremities are free of edema. Objective Imaging CT scan - abdomen: Radiologist's impression: CT scan - abdomen: Radiologist's impression: 1. Status post cholecystectomy. Small free fluid in the pelvis and trace extraluminal gas, consistent with postsurgical changes. 2. In the anterior aspect of the liver, near the gallbladder fossa, there is a 3.2 cm area of rounded low-attenuation of uncertain etiology. Differential includes etiologies such as postsurgical changes, developing infection, infarct or bile leak. Labs 02/26/24 06:00 02/26/24 06:00 Labs: Laboratory Results - last 24 hr 02/25/24 02/25/24 02/26/24 23:30 23:45 01:06 WBC 10.9 Cancelled RBC 4.38 Cancelled Hgb 13.1 Cancelled Hct 39.1 Cancelled MCV 89.3 Cancelled MCH 29.8 Cancelled MCHC 33.4 Cancelled RDW 13.2 Cancelled Plt Count 262 Cancelled Neut % (Auto) 60.9 Cancelled Lymph % (Auto) 30.7 Cancelled [place] % (Auto) 7.1 Cancelled Eos % (Auto) 0.5 L Cancelled Baso % (Auto) 0.8 Cancelled Neut # (Auto) 6700 Cancelled Lymph # (Auto) 3400 Cancelled [place] # (Auto) 800 Cancelled Eos # (Auto) 100 Cancelled Baso # (Auto) 100 Cancelled Sodium 133 L Cancelled Potassium 4.1 Cancelled Chloride 102 Cancelled Carbon Dioxide 22 Cancelled BUN 17 Cancelled Creatinine 0.47 L Cancelled Estimated GFR > 60 Cancelled BUN/Creatinine Ratio 36.2 H Cancelled Glucose 429 H Cancelled Calcium 9.1 Cancelled Total Bilirubin 0.9 Cancelled AST 90 H Cancelled ALT 252 H Cancelled Alkaline Phosphatase 142 H Cancelled Total Protein 7.6 Cancelled Albumin 4.1 Cancelled Globulin 3.5 Cancelled Albumin/Globulin Ratio 1.2 Cancelled Lipase 130 Cancelled Urine RBC None seen Urine WBC None seen Ur Squamous Epith Cells 0-1 /hpf Urine Bacteria None seen Ur Culture Indicated? Cult not indicated Vol Urine Centrifuged 10ml (spun) 02/26/24 06:00 WBC 8.2 RBC 4.03 Hgb 12.3 Hct 36.3 MCV 90.1 MCH 30.4 MCHC 33.8 RDW 13.2 Plt Count 230 Neut % (Auto) 51.1 Lymph % (Auto) 39.3 [place] % (Auto) 8.2 Eos % (Auto) 0.7 L Baso % (Auto) 0.7 Neut # (Auto) 4200 Lymph # (Auto) 3200 [place] # (Auto) 700 Eos # (Auto) 100 Baso # (Auto) 100 Sodium 137 Potassium 3.6 Chloride 107 Carbon Dioxide 25 BUN 14 Creatinine 0.45 L Estimated GFR > 60 BUN/Creatinine Ratio 31.1 H Glucose 230 H D Calcium 8.1 L Total Bilirubin 0.6 AST 69 H ALT 211 H Alkaline Phosphatase 113 Total Protein 6.6 Albumin 3.5 Globulin 3.1 Albumin/Globulin Ratio 1.1 Lipase Urine RBC Urine WBC Ur Squamous Epith Cells Urine Bacteria Ur Culture Indicated? Vol Urine Centrifuged [facility] Medical History IDDM (insulin dependent diabetes mellitus) Surgical History History of Social History household members: spouse Smoking Status: Current every day smoker alcohol intake: never Discharge Assessment & Plan Assessment and Plan Assessment: 1. Postoperative abdominal pain after cholecystectomy, present on admission and improving. 2. Depletion, present on admission and improved. 3. Postoperative elevated liver function tests, present on admission and stable. Plan of Treatment: She was felt to be stable for discharge home with routine follow up and there were no concerns from surgery. Discharge Plan Discharge Plan Patient Disposition: Home Provider Discharge Comment: Seen by surgery, felt to be all within normal limits for postoperative course. Stable for discharge. Discharge orders & Medications Prescriptions: No Action No Known Home Medications Follow up/Referrals: Doctor Meza MD [Primary Care Provider] - Discharge Health Status Multidrug resistant organism: No MDRO Diet/Activity/Treatments Diet: Diet as Tolerated Activity: As tolerated. Skin/Wound/Dressing Care Report to your healthcare provider any signs of infection, such as:: chills, fever, increased pain, unusual drainage and unusual redness Visit Report/Discharge Packet Stand Alone Forms: Patient Portal/API Discharge Data Primary Care Provider: Doctor Derrick Attending Provider: Alton Irvin Admit Date/Time: 02/26/24 00:47 Quality [facility] - DC The patient has a history of heart transplant or Left Ventricular Assist Device (LVAD). If yes, STOP here.: No A. The patient was prescribed or already taking an Angiotensin-Converting Enzyme (FRANKLYN) Inhibitor, or Angiotensin Receptor [place] (ARB).: No
--- NOTE | 2024-02-26 11:34 | CM.DANOTE ---
B DCP Assessment note pt is a 33yo F here following abdominal pain, POD2 from cholescystectomy with Dr. Goznalez here at PCP none listed Payer [employer] and Medicaid [employer] reviewed EMR. Pt to dc home today with family support. Per RN, no obvious CM needs. Pt left prior to being seen by this [employer]. Per hospitalist in morning rounds, no CM needs. P: dc today with family and OP support. 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 No History Provided By Patient Prior Living Arrangements House Household Members spouse Type of transporation used prior to Drives own vehicle admit Independent with ADL's Yes Is patient alert and oriented? Yes Barriers to Discharge No Discharge Plan Home Referrals Initiated None needed Review Status In Process Please Provide Date Initial DC 02/26/24 Assessment Was Performed Next Review Type Continued Stay Review B
== END 2024-02-26 10:50 | disposition home or self-care (01) ==
LOC: ED 23:21 → AC 02-26 00:47
PROVIDERS: Admitting Provider Internal Medicine; Emergency Provider Emergency Medicine; Referring Provider Emergency Medicine; Visit Provider Internal Medicine
DX: R10.11 Right upper quadrant pain (principal); E86.0 Dehydration; E11.65 Type 2 diabetes mellitus with hyperglycemia; Z79.4 Long term (current) use of insulin; Z91.148 Patient's other noncompliance with medication regimen for other reason; R74.01 Elevation of levels of liver transaminase levels; Z90.49 Acquired absence of other specified parts of digestive tract; Z98.890 Other specified postprocedural states
CPT/HCPCS: 36415; 74177; 80053; 81003; 81015; 82962; 83690; 85025; 96372; 96374; 99284; G0378; J1815; J2405; Q9967

== ENCOUNTER 2024-03-23 01:52 | Emergency (ER) | payer OTHER, MEDICAID, SELFPAY ==
[2024-03-23 02:05] VITALS: BP 122/75; PULSE 87; RESP 17; TEMP 36.8; O2SAT 95
--- NOTE | 2024-03-23 02:08 | ED_ITS ---
HPI - General Adult General Stated complaint: rt hand swollen and pus in it. scratched from cat Time Seen by Provider: 03/23/24 02:05 Source: patient Mode of arrival: Ambulatory Limitations: no limitations History of Present Illness HPI narrative: Patient is a 33-year-old female who states that 1 week ago she sustained a scratch to her right wrist by a cat. She states that she comes emergency department today because of swelling that she can feel in the palm of her hand and some discomfort that is coming up her arm. No interventions prior to arrival. No drainage from the area. Related Data Previous Rx's Medication Instructions Recorded amoxicillin 875 mg-potassium 1 tab PO BID 5 days #10 tabs 03/23/24 clavulanate 125 mg tablet Allergies Allergy/AdvReac Type Severity Reaction Status Date / Time metronidazole AdvReac Intermediate Swelling Verified 03/23/24 02:04 of Lip/Tongue/Throat Review of Systems Review of Systems Narrative: See HPI Patient History Medical History IDDM (insulin dependent diabetes mellitus) Surgical History History of Social History household members: spouse Smoking Status: Current every day smoker alcohol intake: never Smoking Status: Current every day smoker tobacco type: vaping Substance Use Type: marijuana Exam Cardio Pulses: radial pulses present on the right Skin Other: Multiple superficial wounds in various stages of healing on both her forearms. She has a scratch to the volar aspect of the right forearm just proximal to the wrist. There is some small surrounding erythema from that area. No streaking up her arm. Neuro Sensory Exam: no sensory deficits noted Course Orders Ordered: Discontinued Medications Amoxicillin/Clavulanate Potassium (Amoxicillin/Clav 875/125 Mg) 1 tab PO NOW ONE Stop: 03/23/24 02:09 Medical Decision Making [facility] Narrative Medical decision making narrative: Multiple scratches and various stages of healing throughout her forearms. There is a area where she states is a CAT scratch in the volar aspect of the right wrist with some small area of erythema. Low suspicion for deep abscess. Afebrile. She appears well. Will start patient on antibiotics. First dose given here in the ER and a prescription was sent to pharmacy of her choice. She was given return precautions. She expressed understanding and agreement with the plan. Discharge Plan Departure Patient Disposition: Home Clinical Impression: Cat scratch of hand Activity Restrictions/Additional Instructions: You can wash your hands like normal use soap and water. Take the antibiotics as directed. Return to the emergency department for new or worsening symptoms. Prescriptions: New amoxicillin-pot clavulanate 875-125 mg tablet 1 tab PO BID 5 Days Qty: 10 0RF Referrals: Chencho Paulson MD [Primary Care Provider] - Stand Alone Forms: Patient Portal/API/Survey
[2024-03-23] MEDS: AMOXICILLIN/CLAV 875/125 MG 1 TAB PO (02:13)
== END 2024-03-23 02:21 | disposition home or self-care (01) ==
PROVIDERS: Emergency Provider Emergency Medicine; PCP Family Medicine
DX: S60.811A Abrasion of right wrist, initial encounter (principal); W55.03XA Scratched by cat, initial encounter
CPT/HCPCS: 99283

== ENCOUNTER 2025-02-13 13:38 | Emergency (ER) | payer OTHER, MEDICAID, SELFPAY ==
[2025-02-13] VITALS (9 sets, daily range): BP systolic 115–125; BP diastolic 65–79; PULSE 58–86; RESP 16–18; TEMP 36.6; O2SAT 98–100; BMI 37.2
[2025-02-13 14:47] LABS: Add Manual Diff / Slide Review NO; Hematocrit 42.5 % (36-46); Hemoglobin 14.6 g/dL (12.0-16.0); Lymphocytes Absolute Auto 2200 /uL (1100-4500); Mean Corpuscular HGB Conc 34.4 % (30-36); Mean Corpuscular Hemoglobin 30.3 PG (26-34); Mean Corpuscular Volume 88.0 fL (80-100); Platelet Count 275 X10^3/uL (150-400)
[2025-02-13 14:54] LABS: Alanine Aminotransferase 35 IU/L (<35); Albumin 4.4 g/dL (3.5-5.0); Albumin Globulin Ratio 1.1 (1.0-2.8); Alkaline Phosphatase 85 U/L (38-126); Blood Urea Nitrogen 7 mg/dL (7-17); Calcium 8.9 mg/dL (8.4-10.2); Carbon Dioxide 23 mmol/L (22-32); Chloride 107 mmol/L (98-107); Estimated Glomerular Filt Rate > 60 mL/min (>60); Globulin 3.9 g/dL (1.7-4.1); Glucose 170 mg/dL (70-99); HEMOLYSIS 24 (0-50); Lipase 80 U/L (23-300); Potassium 3.8 mmol/L (3.4-5.1); Sodium 137 mmol/L (137-145); Total Protein 8.3 g/dL (6.3-8.2)
--- NOTE | 2025-02-13 15:32 | ED_ITS ---
HPI - Abdominal Pain General Chief Complaint: Abdominal Pain Stated Complaint: Last night abd/back pain; RT back pain Time Seen by Provider: 02/13/25 15:32 Source: patient, RN notes reviewed and old records reviewed Mode of arrival: Ambulatory Limitations: no limitations History of Present Illness HPI narrative: 34-year-old female history of insulin-dependent diabetes since age 23, bipolar disorder who presents with complaint of right flank pain. Patient states it started last night at work. She states was bilateral lower pelvic pain and then moved to her right flank. Has stayed more in the right flank with no longer having any anterior pain. Denies fevers. She has had nausea but no vomiting. No dysuria, urgency or frequency. No vaginal bleeding or discharge. She denies any diarrhea or constipation, no black or bloody stools. 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 She notes it is worse with movement. She has not noticed any rash or skin changes. Tried some acetaminophen without any improvement. States she is on insulin with a pump for her diabetes. Reports an allergy to metronidazole and Flonase. Vapes tobacco, uses marijuana no IV drugs. No regular daily alcohol. Related Data Allergies Allergy/AdvReac Type Severity Reaction Status Date / Time metronidazole AdvReac Intermediate Swelling Verified 02/13/25 14:07 of Lip/Tongue/Throat Review of Systems Review of Systems ROS Unobtainable: All systems reviewed & are unremarkable except as noted in HPI and below Patient History Medical History IDDM (insulin dependent diabetes mellitus) Surgical History History of Social History household members: spouse Smoking Status: Current every day smoker alcohol intake: never Smoking Status: Current every day smoker tobacco type: vaping Exam Narrative Exam Narrative: GENERAL: Alert and oriented x three, female in mild distress HEENT: Head normocephalic, atraumatic, EOMI, pupils reactive, face symmetric, moist mucous membranes NECK: Supple, full range of motion CARDIOVASCULAR: Regular rate and rhythm without murmurs, rubs or gallops. RESPIRATORY: Breath sounds equal bilaterally, no wheezes rales or rhonchi. ABDOMEN: Soft, nontender. Normoactive bowel sounds all 4 quadrants. No guarding or rebound, rigidity, no mass : No CVA tenderness BACK: No cervical, thoracic or lumbar vertebral point tenderness. Patient has normal range of motion. EXTREMITIES: Normal range of motion, no clubbing or edema. Neurovascularly intact NEUROLOGICAL: Cranial nerves II through XII grossly intact. Moving all extremities SKIN: Warm, dry, no petechiae, no rashes or lesions, no erythema, no vesicles. Initial Vital Signs Initial Vital Signs: Vital Signs Temperature 97.8 F 02/13/25 14:07 Pulse Rate 72 02/13/25 14:07 Respiratory Rate 18 02/13/25 14:07 Blood Pressure 125/78 02/13/25 14:07 Pulse Oximetry 99 02/13/25 14:07 Oxygen Delivery Method Room Air 02/13/25 14:07 Course Orders Ordered: Discontinued Medications Ketorolac Tromethamine (Ketorolac 30 Mg/Ml Vial) 15 mg IV NOW ONE Stop: 02/13/25 15:40 Last Admin: 02/13/25 15:55 Dose: 15 mg Documented By: AMANDA Ondansetron HCl (Ondansetron 4 Mg/2 Ml Inj) 4 mg IV NOW PRN PRN Reason: Nausea And Vomiting Ondansetron HCl (Ondansetron 4 Mg Odt) 4 mg PO NOW PRN PRN Reason: Nausea And Vomiting Vital Signs Vital signs: Vital Signs - 8 hr 02/13/25 14:07 02/13/25 15:03 02/13/25 15:04 Temperature 97.8 F Pulse Rate 72 86 70 Respiratory Rate 18 Blood Pressure 125/78 Pulse Oximetry 99 98 99 Oxygen Delivery Method Room Air 02/13/25 15:04 Temperature Pulse Rate Respiratory Rate Blood Pressure 119/65 Pulse Oximetry Oxygen Delivery Method MDM - Abdominal Pain Lab Data 02/13/25 14:22 02/13/25 14:22 Labs: Lab Results 02/13/25 Range/Units 14:22 WBC 7.3 (4.5-11.0) X10^3/uL RBC 4.82 (4.0-5.2) X10^6/uL Hgb 14.6 (12.0-16.0) g/dL Hct 42.5 (36-46) % MCV 88.0 (80-100) fL MCH 30.3 (26-34) PG MCHC 34.4 (30-36) % RDW 13.4 (11.6-14.8) % Plt Count 275 (150-400) X10^3/uL Neut % (Auto) 59.4 (50-75) % Lymph % (Auto) 30.1 (25-40) % [place] % (Auto) 7.1 (3-14) % Eos % (Auto) 2.4 (2-4) % Baso % (Auto) 1.0 (0-2) % Neut # (Auto) 4300 (3020-8033) /uL Lymph # (Auto) 2200 (7561-1939) /uL [place] # (Auto) 500 (0-900) /uL Eos # (Auto) 200 (0-450) /uL Baso # (Auto) 100 (0-100) /uL Sodium 137 (137-145) mmol/L Potassium 3.8 (3.4-5.1) mmol/L Chloride 107 (98-107) mmol/L Carbon Dioxide 23 (22-32) mmol/L BUN 7 (7-17) mg/dL Creatinine 0.53 (0.52-1.04) mg/dL Estimated GFR > 60 (>60) mL/min BUN/Creatinine Ratio 13.2 (6-22) Glucose 170 H (70-99) mg/dL Calcium 8.9 (8.4-10.2) mg/dL Total Bilirubin 0.7 (0.2-1.3) mg/dL AST 38 H (14-36) IU/L ALT 35 H (<35) IU/L Alkaline Phosphatase 85 (38-126) U/L Total Protein 8.3 H (6.3-8.2) g/dL Albumin 4.4 (3.5-5.0) g/dL Globulin 3.9 (1.7-4.1) g/dL Albumin/Globulin Ratio 1.1 (1.0-2.8) Lipase 80 (23-300) U/L Point of care testing: Point of Care Testing Test Results Negative Urine Dip Bedside Urine Glucose Negative Bedside Urine Bilirubin - Negative Bedside Urine Ketone - Negative Urine Specific [place] 1.010 Bedside Urine Occult Blood - Negative Bedside Urine pH 7.0 Bedside Urine Protein - Negative Bedside Urine Urobilinogen 0.2 Bedside Urine Nitrite - Negative Bedside Urine Leukocytes - Negative Esterase MDM Narrative Medical decision making narrative: Point of care urine is negative. Point of care urine is negative. CBC shows normal white count, hemoglobin and platelets, electrolytes BUN creatinine are normal glucose is 170 bilirubin is 0.7 AST is 38 with a ALT of 35 which are slightly lower than priors from 2024, lipase is 80. CT abdomen pelvis diffuse fatty liver infiltration, low density seen with the right liver improved compared to 2024. Incidental note made of accessory splenule in the hilum of the primary spleen. Physiologic cystic changes seen involving right ovary. No hydronephrosis. No solid mass. No complex renal cystic lesions which require a follow up. No right-sided kidney stones or hydronephrosis. Pelvic ultrasound shows normal bilateral ovaries negative for ovarian torsion, normal pelvic ultrasound. Patient received Toradol. 34-year-old female with a complaint of right flank pain that started in lower abdomen last night. 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 Not reproducible on exam. Labs shows slightly elevated AST ALT but are improved from priors in 202 that time she had a CT abdomen pelvis post cholecystectomy in the did show little bit of fluid. Because of her history of diabetes we will obtain CT abdomen pelvis. This did not show a clear source of her symptoms some of her symptoms do seem musculoskeletal but discussed watch for shingles. We discussed return precautions all questions answered. Discharge Plan Departure Patient Disposition: Home Clinical Impression: Flank pain Instructions: DI for Flank Pain Activity Restrictions/Additional Instructions: Your imaging shows some fatty liver infiltration as well as low-density region that appears improved from CT in 202 in your right liver as well as an accessory splenule. There are some physiologic cystic changes to right ovary but no ovarian cysts on your imaging. You can continue with the acetaminophen up to a 1000 mg every 6 hours and/or ibuprofen up to 600 mg every 6 hours as needed for pain. Please return for fevers, new or worsening abdominal back or flank pain, persistent vomiting, black or bloody stools, lightheadedness or passing out or other new or concerning changes. Referrals: Chencho Paulson MD [Primary Care Provider, Family Practice] Stand Alone Forms: Patient Portal/API
--- NOTE | 2025-02-13 15:39 | DI.CT.S_ITS ---
PROCEDURE: CT ABDOMEN PELVIS W CON INDICATIONS: R flank pain, but started b/l abd, hx diabetes, prior liliana TECHNIQUE: After the administration of intravenous contrast, axial sections acquired from the lung bases to the pubic symphysis. Coronal and sagittal reformats were performed. For radiation dose reduction, the following was used: automated exposure control, adjustment of mA and/or kV according to patient size. COMPARISON: [facility], CT, CT ABDOMEN PELVIS W CON, 02/25/2024, 23:59. FINDINGS: Image quality: Diagnostic. Lower Chest: No significant findings. ABDOMEN: Liver: No solid mass. Diffuse fatty liver infiltration is noted. There is low density seen within the right liver, which is improved compared to 2023. Gallbladder: Removed. Biliary ducts: No biliary dilation. Pancreas: No ductal dilation. Spleen: Size is within normal limits. Incidental note is made of an accessory splenule along the hilum of the primary spleen. Adrenal Glands: No adrenal nodules. Kidneys and Ureters: No hydronephrosis. No solid mass. No complex renal cystic lesion which requires follow up. Stomach and Bowel: Normal colonic caliber, without significant wall thickening. Peritoneum: No abnormal intraperitoneal fluid. No free air. Ventral Wall: No significant ventral hernia. Abdominal Nodes: No retroperitoneal or mesenteric adenopathy by size criteria. Vessels: Aorta and inferior vena cava are normal in size. PELVIS: Pelvic Organs: Physiologic cystic changes can be seen involving the right ovary. Bladder: No bladder wall thickening, accounting for underdistention. Pelvic Nodes: No enlarged lymph nodes. Miscellaneous: No inguinal hernias are seen. Bones: No aggressive osseous abnormality. IMPRESSION: The right-sided kidney stones or hydronephrosis. Physiologic cystic changes are seen involving the right ovary, without adnexal masses. Additional findings: Fatty liver infiltration Improved low density seen within the right liver compared to 2023. Cholecystectomy Accessory splenule Dictated by: Payam Woo M.D. on 02/13/2025 at 15:01 Approved by: Payam Woo M.D. on 02/13/2025 at 15:03
[2025-02-13] MEDS: KETOROLAC 30 MG/ML VIAL 15 MG IV (15:55)
--- NOTE | 2025-02-13 16:19 | DI.US.S_ITS ---
PROCEDURE: US PELVIC COMPLETE INDICATIONS: R sided pain/flank TECHNIQUE: Real-time scanning was performed of the pelvic organs, with image documentation. Additional endovaginal scanning was necessary due to incomplete visualization of the adnexal and endometrial structures by transabdominal scanning. COMPARISON: [facility], CT, CT ABDOMEN PELVIS W CON, 02/13/2025, 15:45. FINDINGS: Uterus: Uterus is anteverted and normal in size at 8.4 x 3.4 x 4.5 cm. The myometrium is homogeneous. The endometrium measures 2 mm combined thickness. Ovaries: The right ovary measures 3.4 x 2 x 2.4 cm, with a calculated ovarian volume of 3.2 cc. The left ovary measures 3.2 x 1.8 x 1.9 cm, with a calculated ovarian volume of 3.1 cc. The ovaries have a normal sonographic appearance. Less than 12 follicles can be seen in each ovary. No adnexal masses are seen. Normal appearing arterial waveforms are confirmed to each ovary. Other: No pathologic free abdominal or pelvic fluid. IMPRESSION: Normal pelvic ultrasound. Negative for ovarian torsion. We strive to produce accurate, complete, and clear reports of imaging services. To assist us in improving patient care, this report was composed using standard report templates and voice recognition software. Therefore, it may contain abnormal punctuation, insertions and/or omissions. Occasional wrong-word or sound-alike substitutions may occur. Though we review the report and make efforts to correct it, we do recommend that the report be read carefully in proper context to recognize any text inaccuracies. Dictated by: Payam Woo M.D. on 02/13/2025 at 16:59 Approved by: Payam Woo M.D. on 02/13/2025 at 17:00
--- NOTE | 2025-02-13 18:41 | PC.NURSE ---
iv placed by another nurse
== END 2025-02-13 18:48 | disposition home or self-care (01) ==
PROVIDERS: Emergency Medicine; Emergency Provider Emergency Medicine; PCP Family Medicine
DX: R10.31 Right lower quadrant pain (principal); F17.290 Nicotine dependence, other tobacco product, uncomplicated
CPT/HCPCS: 74177; 76830; 76856; 80053; 81003; 81025; 83690; 85025; 96374; 99284; J1885; Q9967

== ENCOUNTER 2025-05-04 15:24 | Emergency (ER) | payer OTHER, MEDICAID, SELFPAY ==
--- OUTSIDE RECORDS SUMMARY | 2025-05-04 15:26 | XMS_ITS | Clinical Summary ---
Author Organization [facility] Address [facility] [address] Care Team Providers Care Head Of Art Name Role Phone Unavailable Primary Care Provider Unavailabl e Allergies Active Allergy Reactions Criticality Noted Date Comments Fluticasone 01/01/2021 Medications insulin NPH isoph U-100 human (HUMULIN N NPH U-100 INSULIN) 100 unit/mL injection Inject 15 Units into the skin Twice a day Active albuterol 90 mcg/actuation inhaler Inhale 2 puffs into the lungs every 4 (four) hours as needed for Wheezing or Shortness of Breath Active ibuprofen (ADVIL,MOTRIN) 800 MG tablet Take 800 mg by mouth every 8 (eight) hours as needed for Pain Active Social History Tobacco Use Types Packs/Day Years Used Date Smoking Tobacco: Never Smokeless Tobacco: Never Alcohol Use Standard Drinks/Week Comments Not Currently 0 (1 standard drink = 0.6 oz pur e alcohol) Comments No Sex and Gender Information Value Date Recorded Sex Assigned at Not on file Legal Sex Female 5:22 PM PDT Gender Identity Not on file Sexual Orientation Not on file Last Filed Vital Signs Vital Sign Reading Time Taken Comments Blood Pressure 141/97 01/01/2021 8:32 PM PDT Pulse 89 01/01/2021 8:32 PM PDT Temperature 36.4 C (97.5 F) 01/01/2021 8:32 PM PDT Respiratory Rate 12 01/01/2021 8:32 PM PDT Oxygen Saturation 99% 01/01/2021 6:29 PM PDT Inhaled Oxygen Concentration - - Weight 77.1 kg (170 lb) 01/01/2021 5:29 PM PDT Height 160 cm (5' 3) 01/01/2021 5:29 PM PDT Body Mass Index 30.11 01/01/2021 5:29 PM PDT Plan of Treatment Not on file Insurance [facility]
[2025-05-04 15:32] VITALS: BP 115/78; PULSE 80; RESP 17; TEMP 36.2; O2SAT 100; BMI 35.4
== END 2025-05-04 17:11 | disposition left against medical advice (07) ==
PROVIDERS: Emergency Provider Emergency Medicine; PCP Family Medicine
DX: M54.89 Other dorsalgia (principal)
CPT/HCPCS: 81003; 99281